=== PATIENT | female | born 1985 | race Hispanic/Latino ===

== ENCOUNTER 2019-04-01 03:23 | Emergency (ER) | payer SELFPAY ==
[2019-04-01] MEDS ORDERED: Morphine 4 MG/ML VIAL ONE (03:43)
[2019-04-01] MEDS ORDERED: Ondansetron PF 4 MG/2 ML Vial ONE (03:43)
[2019-04-01 04:14] LABS: BHCG - Serum Negative (NEGATIVE); Pregs Control Background? CLEAR/WHITE (CLR/WHITE); Pregs Control Bar Appear? YES (CONTROL BAR)
[2019-04-01 04:31] LABS: Band 1 % (5-11); Eosinophils 1 % (0-10); Lymphocytes 36 % (21-51); MDiff Complete? YES; Mean Corpuscular HGB CONC 37.1 g/dL (32.0-36.0); Mean Corpuscular Hemoglobin 32.2 pg (27.0-31.0); Mean Corpuscular Volume 84.3 fL (78.0-98.0); Mean Platelet Volume 7.3 fL (7.4-10.4); Monocytes 5 % (0-10); Neutrophil 56 % (42-75); Platelet Count 227 thou/uL (130-400); Platelet Morphology Comment Appears Adequate; RBC Distribution Width 12.5 % (11.5-14.5); Red Blood Cell (RBC) Count 4.33 mill/uL (4.20-5.40); White Blood Cell (WBC) Count 6.2 thou/uL (4.8-10.8)
[2019-04-01 04:44] LABS: Bilirubin Negative (Negative); Blood, Urine Negative (Negative); Clarity CLEAR (Clear); Glucose, Urine (Dipstick) Negative (Negative); Leukocyte Negative (Negative); Nitrite Negative (Negative); Protein, Urine (Dipstick) Negative (Neg-Trace); Specific Gravity, Urine 1.026 (1.002-1.036)
[2019-04-01] MEDS ORDERED: Ketorolac Tromethamine 30 MG/ML VIAL ONE (05:19)
[2019-04-01 05:23] LABS: Carbon Dioxide 22 mmol/L (22-29); Chloride 97 mmol/L (98-107); Potassium 3.8 mmol/L (3.5-5.1); Sodium 130 mmol/L (136-145)
[2019-04-01 05:36] LABS: Anion Gap 15 mmol/L (10-20); Calc. Creatinine Clearance 0 mL/min (70-130); Estimated GFR-MDRD 79
[2019-04-01 05:37] LABS: Calcium 9.6 mg/dL (7.8-10.44); Glucose 97 mg/dL (70-105)
[2019-04-01 05:38] LABS: Albumin 4.9 g/dL (3.5-5.0); Bilirubin, Total 0.4 mg/dL (0.2-1.2)
[2019-04-01 05:39] LABS: Alkaline Phosphatase 66 U/L (40-150); Globulin 2.8 g/dL (2.4-3.5)
[2019-04-01 05:40] LABS: AST (SGOT) 25 U/L (5-34)
[2019-04-01 05:41] LABS: Lipase 32 U/L (8-78)
[2019-04-01 05:46] LABS: Protein, Total 7.7 g/dL (6.0-8.3)
[2019-04-01 05:52] LABS: ALT (SGPT) 29 U/L (8-55); BUN (Urea Nitrogen) 19 mg/dL (7.0-18.7)
== END 2019-04-01 06:19 | disposition home or self-care (01) ==
LOC: ERS 03:23
DX: R10.32 Left lower quadrant pain (principal); R11.2 Nausea with vomiting, unspecified
CPT/HCPCS: 80053; 81003; 83690; 84703; 85025; 96374; 96375; J1885; J2270; J2405

== ENCOUNTER 2019-06-10 13:23 | Inpatient (IN) | payer SELFPAY ==
[2019-06-10 14:02] LABS: BHCG - Serum Negative (NEGATIVE); Pregs Control Background? CLEAR/WHITE (CLR/WHITE); Pregs Control Bar Appear? YES (CONTROL BAR)
[2019-06-10 14:04] LABS: Bilirubin Negative (Negative); Blood, Urine Negative (Negative); Clarity Clear (Clear); Glucose, Urine (Dipstick) Normal (Negative); Leukocyte Negative Leu/uL (Negative); Nitrite Negative (Negative); Protein, Urine (Dipstick) Negative (Neg-Trace); Urobilinogen Normal mg/dL (Less than 2)
[2019-06-10] MEDS ORDERED: Pantoprazole 40 MG VIAL ONE (14:04)
[2019-06-10] MEDS ORDERED: Ondansetron PF 4 MG/2 ML Vial ONE (14:04)
[2019-06-10] MEDS ORDERED: Morphine 4 MG/ML VIAL ONE ×2 (14:04→16:30)
[2019-06-10 14:27] LABS: Hemoglobin 12.7 g/dL (12.0-16.0); Mean Corpuscular HGB CONC 35.9 g/dL (32.0-36.0); Mean Corpuscular Hemoglobin 29.1 pg (27.0-31.0); Mean Corpuscular Volume 81.1 fL (78.0-98.0); Mean Platelet Volume 7.9 fL (7.4-10.4); Platelet Count 223 thou/uL (130-400); RBC Distribution Width 12.8 % (11.5-14.5); Red Blood Cell (RBC) Count 4.35 mill/uL (4.20-5.40); White Blood Cell (WBC) Count 8.9 thou/uL (4.8-10.8)
[2019-06-10 14:39] LABS: #Eosinphils 0.1 thou/uL (0.0-0.7); #Lymphocytes 3.5 thou/uL (1.20-3.40); #Monocytes 0.5 thou/uL (0.11-0.59); #Neutrophils 4.7 thou/uL (1.40-6.50); %Basophils 0.5 % (0.0-1.0); %Eosinophils 1.4 % (0.0-10.0); %Lymphocytes 39.3 % (21.0-51.0); %Monocytes 5.8 % (0.0-10.0); Band 3 % (5-11); Eosinophils 1 % (0-10); Lymphocytes 30 % (21-51); MDiff Complete? YES; Monocytes 10 % (0-10); Neutrophil 49 % (42-75); Ovalocytes SLIGHT = 2-5 cells (100X) (0-1/hpf); Platelet Morphology Comment Appears Adequate; Polychromasia SLIGHT = 2-3 cells (100X) (0-2/hpf); Reactive Lymphocytes 5 % (0-10); Tear Drops SLIGHT = 2-5 cells (100X) (0-1/hpf)
[2019-06-10] MEDS ORDERED: Ketorolac Tromethamine 30 MG/ML VIAL ONE (14:49)
[2019-06-10 15:02] LABS: Anion Gap 17 mmol/L (10-20); Carbon Dioxide 20 mmol/L (22-29); Chloride 106 mmol/L (98-107); Potassium 4.2 mmol/L (3.5-5.1); Sodium 139 mmol/L (136-145)
[2019-06-10 15:03] LABS: BUN (Urea Nitrogen) 18 mg/dL (7.0-18.7); Calc. Creatinine Clearance 0 mL/min (70-130); Estimated GFR-MDRD 87; Glucose 107 mg/dL (70-105)
[2019-06-10 15:04] LABS: ALT (SGPT) 25 U/L (8-55); AST (SGOT) 31 U/L (5-34); Albumin 4.6 g/dL (3.5-5.0); Alkaline Phosphatase 65 U/L (40-150); Bilirubin, Total 0.5 mg/dL (0.2-1.2); Calcium 9.2 mg/dL (7.8-10.44); Globulin 2.6 g/dL (2.4-3.5); Protein, Total 7.2 g/dL (6.0-8.3)
[2019-06-10 15:06] LABS: CK (CPK) 60 U/L (29-168)
[2019-06-10 15:07] LABS: Lipase 3575 U/L (8-78)
--- NOTE | 2019-06-10 15:14 | CT ---
CT Abdomen Pelvis W Con: 06/10/2019 1:53 PM CLINICAL INFORMATION: Epigastric abdominal pain COMPARISON: None. TECHNIQUE: Multiple contiguous axial images were obtained and a CT of the abdomen and pelvis with IV contrast. C oronal reformats were performed. FINDINGS: Lower Chest: within normal limits. Abdomen: Liver: within normal limits. Bile Ducts: Normal caliber. Gallbladder: No calcified gallstones. Normal caliber wall. Pancreas: Stranding changes seen surrounding the pancreas consistent with acute pancreatitis. There i s no evidence of necrosis of the pancreas or pseudocyst development. Spleen: within normal limits. Adrenals: within normal limits. Kidneys: within normal limits. Pelvis: Reproductive Organs: No pelvic masses. Ureters: within normal limits. Bladder: within normal limits. Peritoneum: No ascites or free air, no fluid collection. Bowel: Normal caliber. Mesentery and Retroperitoneum: No enlarged mesenteric or retroperitoneal lymph nodes. Vessels: Normal. Abdominal Wall: within normal limits. Bones: Within normal limits IMPRESSION: Acute pancreatitis.
[2019-06-10] MEDS ORDERED: Fentanyl 100 MCG/2 ML VIAL ONE ×2 (15:33→15:54)
[2019-06-10] MEDS ORDERED: ISOVUE-370 76%-LOCM 1 ML ONE (16:20)
[2019-06-10] MEDS ORDERED: Morphine 4 MG/ML VIAL SLOW IVP PRN (16:37)
[2019-06-10] MEDS ORDERED: Acetaminophen 650 MG Suppository PR PRN (16:37)
[2019-06-10] MEDS: Sodium Chloride 0.9% 1,000 ML IV SCH (17:24)
[2019-06-10 17:47] LABS: Amphetamine Not Detected (NotDetected); Barbiturates Screen Not Detected (NotDetected); Benzodiazepine Screen Not Detected (NotDetected); Cocaine Metabolite Screen Not Detected (NotDetected); Medtox Control Line Valid? VALID (VALID); Medtox Reader # READER 1; Methadone Not Detected (NotDetected); Methamphetamine Not Detected (NotDetected); Opiate Screen Not Detected (NotDetected); Oxycodone Screen Not Detected (NotDetected); Phencyclidine (PCP) Not Detected (NotDetected); THC/Cannabinoid Screen Detected (NotDetected); Tricyclic Screen Not Detected (NotDetected)
--- NOTE | 2019-06-10 17:54 | HP ---
PRIMARY CARE PROVIDER: None. CHIEF COMPLAINT: Abdominal pain. HISTORY OF PRESENT ILLNESS: Ms. Snyder is a pleasant 34-year-old lady, who was seen at [facility] on June 10, 2019. She moved here from [place] approximately 5 months ago. She reports that 2 years ago while she was in [place], she had abdominal pain. She was hospitalized for a month. She also reports having some procedure to remove fat with the scope. She has been told not to eat lactulose. She was also reportedly told that she cannot eat shrimp. She presented to our emergency room on April 01, 2019, complaining of left lower quadrant abdominal pain. She was discharged home with pain medications at that time. She reports drinking 4 beers two days ago. That day, she also had diarrhea. She also reports having some nausea. She denies any fevers. She ate at a [employer] yesterday and consumed shrimp. Today morning, she started having abdominal pain. She describes that it is in the epigastrium, 10/10, constant, radiating to the back, no known aggravating or relieving factors, accompanied by nausea, but not by vomiting. She denies any fevers. She is unable to describe the character of the pain. She presented to the emergency room because of the above symptoms. REVIEW OF SYSTEMS: All systems were reviewed and found to be negative except for the pertinent positives mentioned above. PAST MEDICAL HISTORY: Probable pancreatitis while she was in [place]. PAST SURGICAL HISTORY: Appendectomy and surgical removal of ovarian cyst. SOCIAL HISTORY: The patient drinks alcohol occasionally. She denies tobacco use. She smokes marijuana. FAMILY HISTORY: No family history of coronary artery disease. ALLERGIES: NO KNOWN DRUG ALLERGIES. CURRENT MEDICATIONS: None. PHYSICAL EXAMINATION: GENERAL: On examination, Ms. Snyder is awake and alert, occasionally in distress because of epigastric pain. VITAL SIGNS: Blood pressure is 136/82, pulse 71, respiratory rate 16, and oxygen saturation 100% on 2 L of oxygen. She is afebrile. EYES: No scleral icterus. No conjunctival pallor. ENT: Moist mucosal membranes. No oropharyngeal erythema or exudates. NECK: Supple, nontender, trachea is midline. RESPIRATORY: Accessory muscles of breathing are not active. Chest wall movements are symmetric bilaterally. Lungs are clear to auscultation without wheeze, rhonchi, or crepitations. CARDIOVASCULAR: S1 and S2 are heard, regular. Peripheral pulses palpable. ABDOMEN: She has epigastric tenderness. No guarding or rigidity. Bowel sounds are heard. Camargo sign is negative. No hepatomegaly. No splenomegaly. NEUROLOGIC: Cranial nerves 2 through 12 intact, deep tendon reflexes 2+. MUSCULOSKELETAL: Power is 5/5 in all 4 extremities. SKIN: No rashes or subcutaneous nodules. LYMPHATIC: No cervical lymphadenopathy. PSYCHIATRIC: Normal mood, normal affect. The patient is oriented to person, place, and time. LABORATORY DATA: Ms. Snyder' labs and investigations were reviewed. A 12-lead electrocardiogram shows normal sinus rhythm, no ST changes to suggest an acute coronary syndrome. CT scan of the abdomen and pelvis showed acute pancreatitis. She has an unremarkable CBC, mildly decreased carbon dioxide of 20, otherwise unremarkable comprehensive metabolic profile, negative serum test, lipase is elevated at 3575, normal CK and normal troponin-I. Urinalysis was negative. ASSESSMENT AND PLAN: Ms. Snyder is a pleasant 34-year-old lady, who was seen at [facility] on June 10, 2019. Her problem list includes: 1. Acute abdominal pain: This is most likely secondary to acute pancreatitis. The etiology is unclear. She will be admitted to the hospital for further management. She will be kept n.p.o. She will receive intravenous fluids and pain medications. We will recheck her lipase. We will also recheck comprehensive metabolic profile. 2. Marijuana use: The patient has been counseled regarding marijuana cessation. Further management during this hospitalization depending on how she does tonight. LEVEL OF RISK: Moderate. LEVEL OF COMPLEXITY: Moderate. Job ID: [id number]
[2019-06-10] MEDS: Ondansetron PF 4 MG/2 ML Vial IVP PRN (18:31)
[2019-06-10] MEDS: Morphine 2 MG/ML SYRINGE SLOW IVP PRN ×2 (18:32→22:33)
[2019-06-10] MEDS: Ketorolac Tromethamine 30 MG/ML VIAL IVP PRN (20:34)
[2019-06-10] MEDS: Famotidine/PF 20 mg/2ml Vial SLOW IVP SCH (20:39)
[2019-06-11] MEDS: Morphine 2 MG/ML SYRINGE SLOW IVP PRN ×3 (02:12→14:31)
[2019-06-11] MEDS: Sodium Chloride 0.9% 1,000 ML IV SCH ×2 (02:13→13:22)
[2019-06-11] MEDS: Ketorolac Tromethamine 30 MG/ML VIAL IVP PRN (04:46)
[2019-06-11 07:12] LABS: #Lymphocytes 1.3 thou/uL (1.20-3.40); #Monocytes 0.5 thou/uL (0.11-0.59); #Neutrophils 13.8 thou/uL (1.40-6.50); %Basophils 0.1 % (0.0-1.0); %Eosinophils 0.2 % (0.0-10.0); %Lymphocytes 8.5 % (21.0-51.0); %Monocytes 3.4 % (0.0-10.0); %Neutrophils 87.8 % (42.0-75.0); Hemoglobin 13.1 g/dL (12.0-16.0); Mean Corpuscular HGB CONC 33.4 g/dL (32.0-36.0); Mean Corpuscular Volume 86.8 fL (78.0-98.0); Mean Platelet Volume 9.3 fL (7.4-10.4); Platelet Count 172 thou/uL (130-400); RBC Distribution Width 13.8 % (11.5-14.5); Red Blood Cell (RBC) Count 4.53 mill/uL (4.20-5.40); White Blood Cell (WBC) Count 14.9 thou/uL (4.8-10.8)
[2019-06-11] MEDS: Famotidine/PF 20 mg/2ml Vial SLOW IVP SCH ×2 (08:49→20:53)
[2019-06-11] MEDS: Ondansetron PF 4 MG/2 ML Vial IVP PRN ×2 (09:44→19:08)
[2019-06-11] MEDS ORDERED: Fentanyl 100 MCG/2 ML VIAL SLOW IVP SCH (11:30)
[2019-06-11] MEDS ORDERED: Calcium Gluc 4.6 MEQ/10 ML (100 MG/ML) SLOW IVP SCH ×2 (11:35→14:00)
--- NOTE | 2019-06-11 12:08 | CT ---
CT BRAIN WITHOUT CONTRAST: HISTORY: Numbness and tingling ion the face and fingers. COMPARISON: There are no previous exams for comparison. FINDINGS: No evidence of infarct, hemorrhage, midline shift, or abnormal extraaxial fluid collections are seen. The ventricular size is normal, and the basilar cisterns are patent. The bony calvarium is intact. The visualized paranasal sinuses and mastoid air cells are well aerated. IMPRESSION: No CT evidence of acute intracranial process. POS: TPC
[2019-06-11 13:16] LABS: Carbon Dioxide 19 mmol/L (22-29); Chloride 107 mmol/L (98-107); Potassium 3.8 mmol/L (3.5-5.1); Sodium 137 mmol/L (136-145)
[2019-06-11 13:17] LABS: Anion Gap 15 mmol/L (10-20); BUN (Urea Nitrogen) 18 mg/dL (7.0-18.7); Calc. Creatinine Clearance 118 mL/min (70-130); Estimated GFR-MDRD Greater than 90
[2019-06-11 13:18] LABS: Glucose 122 mg/dL (70-105)
[2019-06-11 13:19] LABS: Bilirubin, Total 0.6 mg/dL (0.2-1.2); Calcium 4.8 mg/dL (7.8-10.44)
[2019-06-11 13:20] LABS: Albumin 3.2 g/dL (3.5-5.0); Globulin 2.3 g/dL (2.4-3.5); Protein, Total 5.5 g/dL (6.0-8.3)
[2019-06-11 13:21] LABS: ALT (SGPT) 13 U/L (8-55); AST (SGOT) 43 U/L (5-34); Alkaline Phosphatase 46 U/L (40-150)
[2019-06-11] MEDS ORDERED: Dextrose 10% in Water 1,000 ML IV SCH (14:00)
[2019-06-11] MEDS ORDERED: Fentanyl 100 MCG/2 ML VIAL SLOW IVP PRN (14:02)
[2019-06-11] MEDS ORDERED: Magnesium 2 GM/50 ML 2 GM in Premix Bag 1 BAG IVPB SCH (14:45)
[2019-06-11] MEDS ORDERED: Lactated Ringer's 1,000 ML IV SCH (15:45)
[2019-06-11] MEDS: HUMULIN R 100 UNITS in Sodium Chloride 0.9% 100 ML IVPB SCH (15:47)
[2019-06-11 16:20] LABS: Cardiac Risk 34.8 (Less than 4.5); Cholesterol 453 mg/dl (< 200 Desired); HDL Cholesterol 13 mg/dL (>60 Neg Risk)
--- NOTE | 2019-06-11 16:20 | CON ---
DATE OF CONSULTATION: 06/11/2019 SERVICE: Pulmonary Medicine. REASON FOR CONSULTATION: ICU patient. HISTORY OF PRESENT ILLNESS: The patient is a 34-year-old female with past medical history significant for alcohol abuse. Apparently, she is a daily drinker, though she denied it when she came into the hospital. She was in her usual state of health when she started having onset of abdominal discomfort. Multiple attempts have been made at drawing blood samples, but a couple of samples have been discarded because the lipid level was too high. We subsequently brought her down to the ICU department to initiate an insulin drip. She has abdominal discomfort. Otherwise, she is in her usual state of health. She has a remote history of acute pancreatitis. She is Maltese-speaking only. PAST MEDICAL HISTORY: History of pancreatitis. PAST SURGICAL HISTORY: 1. Appendectomy. 2. Ovarian cyst excision. SOCIAL HISTORY: The patient drinks on a daily basis. The extent of that is difficult to understand. She denies any tobacco. Outside of marijuana, she does not do any illicit drugs. FAMILY HISTORY: Noncontributory. ALLERGIES: NO KNOWN DRUG ALLERGIES. MEDICATIONS: List of her inpatient medications was reviewed. Multiple updates were made at this time. REVIEW OF SYSTEMS: General; head, eyes, ears, nose, and throat; cardiovascular, respiratory, GI, , musculoskeletal, neurologic, and skin are negative, except as mentioned in the HPI. PHYSICAL EXAMINATION: VITAL SIGNS: Afebrile. Pulse 88, blood pressure 100/68, respirations 18, and saturation 97% on room air. GENERAL: The patient is awake and alert, in no apparent distress. LUNGS: Decent air entry. No prolonged expiratory phase or wheezing is present. HEART: Normal rate. Regular. ABDOMEN: Distended. Tender to palpation in the epigastric region. There is no rebound. Bowel sounds are hypoactive. She has some rebound. : No Craig. NEUROLOGIC: Grossly nonfocal. LABORATORY DATA: WBC 14.9 and up trending, hemoglobin 13.1, and roughly stable , and platelets 172,000. Sodium 137, potassium 3.8, bicarb 19, glucose 122, calcium 4.8, AST 43, ALT 13. Albumin 3.2, globulin 2.3. Troponin is negative x1. CK is unremarkable. Lipase was originally 3500. Urine test was unremarkable. Urinalysis is negative. Urine drug screen is positive for cannabinoids. IMAGING STUDIES: 1. CT of the abdomen and pelvis demonstrates findings consistent with acute pancreatitis. There are stranding and changes seen around the pancreas. No evidence of necrosis of the pancreas or pseudocyst development. The gallbladder was normal caliber and no calcified gallstones were identified. The bile duct normal specifically had normal caliber. 2. CT of the brain demonstrates no acute intracranial abnormality. ASSESSMENT: 1. Acute pancreatitis. 2. Dyslipidemia. DISCUSSION AND PLAN: My suspicion is that we are dealing with a severe acute pancreatitis, that is early in its manifestation. The fact that the patient has had 2 blood samples discarded because of hemolysis and lipidemia, are of concern. I am going to treat this like she has hypertriglyceridemia while we attempt to get the results back. She has already had a negative CT scan for obstructive lesions. She is not taking any medications. We will increase her fluids to lactated Ringer's at 150 an hour and add D10 water to be titrated. I am going to initiate this insulin drip. Pain medication will be instituted to help with the discomfort in her belly. This will be Dilaudid. I will get rid of the fentanyl and the morphine. Pulmonary/ Critical Care will continue to follow while the patient remains in the ICU. 70 minutes have been devoted to this patient in various activities. I personally reviewed all imaging studies and laboratory data noted within this document. For fifty percent of this time, I was interacting with the patient at the bedside or coordinating care with the care team. For the remainder of the time I was immediately available to the patient in the hospital unit. Job ID: [id number] MTDD
[2019-06-11 17:04] LABS: Triglycerides 3335 mg/dL (Less than 150)
[2019-06-11] MEDS: Calcium Gluconate 4.6 MEQ in Sodium Chloride 0.9% 100 ML IVPB SCH ×2 (17:08→20:53)
[2019-06-11] MEDS: HYDROmorphone 0.5 MG/0.5 ML SYRINGE SLOW IVP PRN ×4 (17:12→23:27)
--- NOTE | 2019-06-11 18:08 | PDOC.HOSPP ---
- Subjective Encounter Date: 06/11/19 Encounter Time: 18:07 Subjective: Pt seen for followup re: severe hypercalcemia. Seen earlier as well, pt was having carpal spasms. Reports feeling slightly better now. Nausea+ - Objective Vital Signs & Weight: Vital Signs (12 hours) Temp Pulse Resp BP Pulse Ox 06/11/19 16:01 98 06/11/19 16:00 98.4 F 06/11/19 14:40 98.9 F 88 20 116/72 97 06/11/19 11:35 99.0 F 88 18 100/68 97 06/11/19 08:00 98.7 F 85 18 106/72 97 Weight Weight 130 lb 1.164 oz Most Recent Monitor Data Heart Rate from ECG 99 NIBP 98/62 NIBP BP-Mean 74 Respiration from ECG 28 SpO2 97 I&O: 06/10/19 06/11/19 06/12/19 06:59 06:59 06:59 Intake Total 100 Output Total 150 Balance -50 Result Diagrams: 06/11/19 06:19 06/11/19 12:00 Additional Labs: Accuchecks 06/11/19 06/11/19 16:51 16:02 POC Glucose 118 H 154 H labs and MARS reviewed by me EKG Reviewed by me: Yes (Tele: NSR) ROS - Review of Systems ENT: reports: throat pain Respiratory: denies: cough, shortness of breath, SOB with excertion, pleuritic pain, wheezing, other Cardiovascular: denies: chest pain, palpitations, orthopnea, paroxysmal noc. dyspnea, edema, light headedness Gastrointestinal: reports: nausea, vomitting, abdominal pain. denies: diarrhea , constipation, melena, hematochezia Musculoskeletal: reports: hand pain - Medication Medications: Active Medications Generic Name Dose Route Start Last Admin Trade Name Freq PRN Reason Stop Dose Admin Famotidine 20 mg 06/10/19 21:00 06/11/19 08:49 Pepcid SLOW IVP 20 mg Q12HR AUDIE Administration Hydromorphone HCl 0.25 mg 06/11/19 15:55 06/11/19 17:12 Dilaudid SLOW IVP 0.25 mg Q2H PRN Administration Pain Insulin Human Regular 100 101 mls @ 0 mls/hr 06/11/19 14:00 06/11/19 15:47 units/ Sodium Chloride IVPB 101 mls INF AUDIE Administration Protocol Titrate Lactated Ringer's 1,000 mls @ 150 mls/hr 06/11/19 15:45 06/11/19 16:57 Lactated Ringer's IV 1,000 mls .Q6H40M AUDIE Administration Calcium Gluconate 4.6 meq/ 110 mls @ 200 mls/hr 06/11/19 16:00 06/11/19 17:08 Sodium Chloride IVPB 06/11/19 20:32 110 mls Q4H AUDIE Administration Ondansetron HCl 4 mg 06/10/19 16:37 06/11/19 09:44 Zofran IVP 4 mg Q6H PRN Administration Nausea/Vomiting - Exam NAD Eye: anicteric sclera ENT: normocephalic atraumatic Neck: supple Heart: RRR, no gallops Respiratory: CTAB, no rales Gastrointestinal: tender to palpation, distended, diminished bowl sounds Extremities: no cyanosis Skin: normal turgor Neurological - other findings: carpal spasms Psychiatric: normal affect, normal behavior Hosp A/P (1) Hypocalcemia Code(s): E83.51 - HYPOCALCEMIA Status: Acute (2) Acute pancreatitis Code(s): K85.90 - ACUTE PANCREATITIS WITHOUT NECROSIS OR INFECTION, UNSP Status: Acute (3) Marijuana use Code(s): F12.90 - CANNABIS USE, UNSPECIFIED, UNCOMPLICATED Status: Chronic (4) Hypertriglyceridemia Code(s): E78.1 - PURE HYPERGLYCERIDEMIA Status: Chronic - Plan plan discussed w/ family Pt has been started on IV calcium replacement. magnesium replaced as well. On insulin drip for hypertriglyceridemia (along with dextrose IV fluids). Bowel rest. Follow lipase.
[2019-06-11 18:21] LABS: Anion Gap 20 mmol/L (10-20); BUN (Urea Nitrogen) 13 mg/dL (7.0-18.7); Calc. Creatinine Clearance 126 mL/min (70-130); Calcium 6.1 mg/dL (7.8-10.44); Carbon Dioxide 10 mmol/L (22-29); Chloride 101 mmol/L (98-107); Estimated GFR-MDRD Greater than 90; Glucose 104 mg/dL (70-105); Sodium 128 mmol/L (136-145)
[2019-06-11] MEDS ORDERED: Calcium Gluconate 4.6 MEQ in Sodium Chloride 0.9% 100 ML IVPB SCH (19:15)
[2019-06-11] MEDS ORDERED: Furosemide 20 MG/2 ML VIAL SLOW IVP SCH (19:15)
[2019-06-11] MEDS: Dextrose 5%-Lactated Ringers 1,000 ML IV SCH (19:31)
[2019-06-11] MEDS: Potassium Chloride 40 MEQ in Sodium Chloride 0.9% 500 ML IVPB SCH (19:32)
[2019-06-11] MEDS: Heparin 5,000 UNITS/ML VIAL SC SCH (20:53)
[2019-06-12] MEDS: Potassium Chloride 40 MEQ in Sodium Chloride 0.9% 500 ML IVPB SCH
[2019-06-12] MEDS: Dextrose 5%-Lactated Ringers 1,000 ML IV SCH ×4 (01:36→19:07)
[2019-06-12] MEDS: Dextrose 10% in Water 1,000 ML IV SCH ×4 (01:37→23:18)
[2019-06-12] MEDS: HYDROmorphone 0.5 MG/0.5 ML SYRINGE SLOW IVP PRN ×10 (02:02→22:05)
--- NOTE | 2019-06-12 03:32 | CON ---
DATE OF CONSULTATION: 06/11/2019 CHIEF COMPLAINT: Abdominal pain. HISTORY OF PRESENT ILLNESS: Ms. Snyder is a 34-year-old woman had onset of severe epigastric to lower abdominal pain in the morning of 06/10/2019. Pain was severe, radiated to her back. She had nausea without vomiting. No diarrhea, constipation,or blood in the stool. She had been hospitalized a couple of years ago with pancreatitis. She is in the hospital for a month. She does have a history of alcohol use, however, is found to have significantly elevated triglycerides. PAST MEDICAL HISTORY: Pancreatitis. PAST SURGICAL HISTORY: Appendectomy and ovarian cyst surgery. FAMILY HISTORY: Negative for GI malignancy. SOCIAL HISTORY: There is conflicting information regarding the amount of alcohol use. Does smoke marijuana, but denies tobacco. ALLERGIES: NO KNOWN DRUG ALLERGIES. MEDICATIONS: As an outpatient, none. Current inpatient medications are famotidine, Dilaudid, insulin drip. REVIEW OF SYSTEMS: Negative x10 systems reviewed except as stated in history of present illness. PHYSICAL EXAMINATION: VITAL SIGNS: Temperature 99.4, blood pressure 108/69, pulse 117. GENERAL: She is in obvious discomfort. She is awake and alert. HEENT: Eyes have no scleral icterus. Oropharynx is clear without lesions. NECK: No cervical or supraclavicular lymphadenopathy. LUNGS: Clear to auscultation bilaterally. HEART: Tachycardic, S1 and S2. ABDOMEN: Tender in the epigastric region to light palpation. Bowel sounds were hypoactive. EXTREMITIES: No lower extremity edema. LABORATORY DATA: White blood cell count 14.9, hemoglobin 13.1, platelets 172. Creatinine 0.58. Calcium 6.1, however, this is from 4.8 at noon today. Bilirubin 0.6, AST 43, ALT 13, alkaline phosphatase 46, albumin 3.2. Triglycerides 3335, lipase 3575. IMPRESSION: Acute severe pancreatitis secondary to hypertriglyceridemia. The hypocalcemia is a worrisome finding. Her hemoglobin increased slightly from last night to this morning; however, her fluids have since been increased. CT scan on 06/10/2019, showed no signs of necrosis on the contrasted study. RECOMMENDATIONS: 1. Plasmapheresis is not available at this facility, though she is being treated with insulin drip. 2. We will need to follow the trend of her triglycerides. Ultimately, we will need to start oral long-term therapy. 3. Follow trend of her calcium. This is being replaced IV. 4. Pain control, currently on Dilaudid. She might end up requiring a pain pump. 5. Continue to monitor for secondary organ failure. 6. Lactated Ringer's IV currently at 175 mL/h. Job ID: [id number]
[2019-06-12 05:43] LABS: ALT (SGPT) 12 U/L (8-55); AST (SGOT) 28 U/L (5-34); Albumin 2.7 g/dL (3.5-5.0); Alkaline Phosphatase 44 U/L (40-150); Anion Gap 13 mmol/L (10-20); BUN (Urea Nitrogen) 11 mg/dL (7.0-18.7); Calc. Creatinine Clearance 138 mL/min (70-130); Carbon Dioxide 17 mmol/L (22-29); Chloride 104 mmol/L (98-107); Estimated GFR-MDRD Greater than 90; Glucose 122 mg/dL (70-105); Lipase 387 U/L (8-78); Potassium 3.7 mmol/L (3.5-5.1); Protein, Total 5.7 g/dL (6.0-8.3); Sodium 130 mmol/L (136-145)
[2019-06-12 05:44] LABS: Band 22 % (5-11); Hemoglobin 13.2 g/dL (12.0-16.0); Lymphocytes 6 % (21-51); MDiff Complete? YES; Mean Corpuscular HGB CONC 35.9 g/dL (32.0-36.0); Mean Corpuscular Volume 86.4 fL (78.0-98.0); Mean Platelet Volume 7.6 fL (7.4-10.4); Monocytes 2 % (0-10); Neutrophil 70 % (42-75); Platelet Count 180 thou/uL (130-400); Platelet Morphology Comment Appears Adequate; RBC Morphology Normal; Red Blood Cell (RBC) Count 4.26 mill/uL (4.20-5.40); White Blood Cell (WBC) Count 10.9 thou/uL (4.8-10.8)
[2019-06-12 05:48] LABS: Calcium 5.9 mg/dL (7.8-10.44); Magnesium 1.9 mg/dL (1.6-2.6)
[2019-06-12] MEDS ORDERED: Calcium Gluconate 4.6 MEQ in Sodium Chloride 0.9% 100 ML IVPB SCH (06:15)
[2019-06-12] MEDS: HUMULIN R 100 UNITS in Sodium Chloride 0.9% 100 ML IVPB SCH (06:38)
[2019-06-12] MEDS: Famotidine/PF 20 mg/2ml Vial SLOW IVP SCH ×2 (08:01→21:03)
[2019-06-12] MEDS: Heparin 5,000 UNITS/ML VIAL SC SCH ×3 (08:02→21:03)
[2019-06-12] MEDS ORDERED: Magnesium 2 GM/50 ML 2 GM in Premix Bag 1 BAG IVPB SCH (10:30)
--- NOTE | 2019-06-12 10:34 | PRG ---
DATE OF SERVICE: 06/12/2019 SERVICE: Pulmonary Medicine. INTERVAL HISTORY: The patient is doing okay from Respiratory standpoint. She remains tachypneic. She has exquisite abdominal discomfort. Otherwise, there really has not been a significant interval change in her condition. She denies any fevers or chills. There were no significant overnight events otherwise. PHYSICAL EXAMINATION: VITAL SIGNS: Afebrile, pulse 121, blood pressure 110/74, respirations 39, saturation 95% on room air. GENERAL: The patient is awake and alert, in no apparent distress. LUNGS: Very good air entry. No crackles or wheezing appreciated. HEART: Normal rate and regular. ABDOMEN: Distended. Exquisitely tender to palpation. There is positive rebound. Bowel sounds are hypoactive. : No Craig NEUROLOGIC: Grossly nonfocal. LABORATORY DATA: WBC 10.9, hemoglobin 13.2, platelets 180,000. Band count is 22% on top of 70% neutrophils. Magnesium 1.9. Blood sugars are ranging from 119 to 120. Triglycerides have improved to 1100. Calcium 5.9, sodium 130. Bicarb has improved gently to 17. Liver function studies are otherwise unremarkable. Lipase 387, has significantly improved. Calcium continues to trend downward to 5.9. ASSESSMENT: 1. Acute pancreatitis. 2. Hypertriglyceridemia. 3. Hypocalcemia, owing to soponification reaction. DISCUSSION AND PLAN: I will replace the magnesium and calcium today. I will continue to follow electrolytes through time. It appears that the acute inflammatory response is slowly improving. If by tomorrow, she cannot tolerate food, my plan would be to initiate trickle tube feeds. Early feeding is imperative in people who have severe pancreatitis. She needs to remain in the ICU on her insulin drip for the next 24 hours. Job ID: [id number] [facility]
[2019-06-12] MEDS: Calcium Gluconate 4.6 MEQ in Sodium Chloride 0.9% 100 ML IVPB SCH ×2 (11:03→14:58)
[2019-06-12] MEDS ORDERED: Potassium Chloride 40 MEQ in Sodium Chloride 0.9% 250 ML 250 ML IVPB SCH (12:00)
[2019-06-12] MEDS ORDERED: Acetaminophen 1,000 MG in Premix Bag 1 BAG IVPB SCH (12:15)
[2019-06-12] MEDS: Acetaminophen 325 MG TAB PO PRN (17:30)
--- NOTE | 2019-06-12 17:43 | PDOC.HOSPP ---
- Subjective Encounter Date: 06/12/19 Encounter Time: 09:00 Subjective: Pt seen for followup re: hypocalcemia. Feels better. - Objective Vital Signs & Weight: Vital Signs (12 hours) Temp Pulse Ox 06/12/19 16:00 98.0 F 06/12/19 11:56 98.1 F 06/12/19 08:00 94 L 06/12/19 07:00 98.6 F Weight Weight 152 lb 8.958 oz Most Recent Monitor Data Heart Rate from ECG 118 NIBP 129/75 NIBP BP-Mean 93 Respiration from ECG 30 SpO2 98 I&O: 06/11/19 06/12/19 06/13/19 06:59 06:59 06:59 Intake Total 5224 3343 Output Total 1350 1357 Balance 3874 1986 Result Diagrams: 06/12/19 04:59 06/12/19 04:59 Additional Labs: Accuchecks 06/12/19 06/12/19 06/12/19 14:12 10:09 09:00 POC Glucose 108 110 122 H 06/12/19 06/12/19 06/12/19 08:09 07:04 06:05 POC Glucose 120 H 119 H 116 H 06/12/19 06/12/19 06/12/19 04:59 04:08 03:04 POC Glucose 119 H 124 H 118 H 06/12/19 06/12/19 06/11/19 02:08 00:54 23:53 POC Glucose 125 H 117 H 115 H 06/11/19 06/11/19 06/11/19 22:54 21:53 20:50 POC Glucose 106 114 H 128 H 06/11/19 06/11/19 06/11/19 19:49 18:39 17:48 POC Glucose 130 H 98 116 H 06/11/19 15:37 POC Glucose 182 H Labs and MARs reviewed by me EKG Reviewed by me: Yes (Tele: sinus tachycardia) ROS - Review of Systems Cardiovascular: denies: chest pain, palpitations, orthopnea, paroxysmal noc. dyspnea, edema, light headedness Gastrointestinal: reports: nausea, abdominal pain. denies: vomitting, diarrhea , constipation, melena, hematochezia - Medication Medications: Active Medications Generic Name Dose Route Start Last Admin Trade Name Freq PRN Reason Stop Dose Admin Famotidine 20 mg 06/10/19 21:00 06/12/19 08:01 Pepcid SLOW IVP 20 mg Q12HR AUDIE Administration Heparin Sodium (Porcine) 5,000 units 06/11/19 21:00 06/12/19 14:27 Heparin SC 5,000 units TID AUDIE Administration Hydromorphone HCl 0.25 mg 06/11/19 15:55 06/12/19 14:27 Dilaudid SLOW IVP 0.25 mg Q2H PRN Administration Pain Insulin Human Regular 100 101 mls @ 0 mls/hr 06/11/19 14:00 06/12/19 06:38 units/ Sodium Chloride IVPB 101 mls INF AUDIE Administration Protocol Titrate Dextrose/Water 1,000 mls @ 40 mls/hr 06/11/19 15:56 06/12/19 16:45 Dextrose 10% In Water IV Not Given .Q24H AUDIE As Directed Dextrose/Lactated Ringer's 1,000 mls @ 175 mls/hr 06/11/19 19:15 06/12/19 13: 01 D5 Lr IV 1,000 mls .Q5H43M AUDIE Administration Ondansetron HCl 4 mg 06/10/19 16:37 06/11/19 19:08 Zofran IVP 4 mg Q6H PRN Administration Nausea/Vomiting - Exam NAD Eye: anicteric sclera ENT: normocephalic atraumatic, moist mucosa Neck: supple Heart: no rubs Heart - other findings: S1, S2, tachy, reg Respiratory: CTAB Gastrointestinal: soft, no guarding, no rigidity Gastrointestinal - other findings: diffuse tenderness Skin: no rashes Musculoskeletal: normal strength Psychiatric: normal affect, normal behavior Hosp A/P (1) Hypocalcemia Code(s): E83.51 - HYPOCALCEMIA Status: Acute (2) Acute pancreatitis Code(s): K85.90 - ACUTE PANCREATITIS WITHOUT NECROSIS OR INFECTION, UNSP Status: Acute (3) Marijuana use Code(s): F12.90 - CANNABIS USE, UNSPECIFIED, UNCOMPLICATED Status: Chronic (4) Hypertriglyceridemia Code(s): E78.1 - PURE HYPERGLYCERIDEMIA Status: Chronic - Plan Pt receiving IV calcium gluconate. Triglyceride levels improved. On insulin drip for hypertriglyceridemia. Bowel rest. Lipase improved.
--- NOTE | 2019-06-12 19:33 | PRG ---
DATE OF SERVICE: 06/12/2019 SUBJECTIVE: Ms. Snyder continues to have abdominal pain. She is receiving Dilaudid scheduled dosing. She is putting out good urine output. PHYSICAL EXAMINATION: VITAL SIGNS: Temperature 98.0, pulse 119, blood pressure 105/67. GENERAL: She is in obvious discomfort. She tells me her name, but is not Danish-speaking. LUNGS: Clear to auscultation bilaterally. HEART: Tachycardic S1 and S2. ABDOMEN: Very tender diffusely. Bowel sounds are hypoactive. EXTREMITIES: No lower extremity edema. LABORATORY DATA: Her white blood cell count has improved from 14.9 to 10.9 and her hemoglobin is 13.2. Calcium 5.9, bilirubin 1.0, AST 28, ALT 12, alkaline phosphatase 44, creatinine 0.62, lipase 387, triglycerides 1158. IMPRESSION: 1. Severe acute pancreatitis secondary to hypertriglyceridemia. Primary treatment is fluid resuscitation and improvement in the triglycerides. Plasmapheresis is not available. She is being treated with insulin drip and her triglycerides have improved from 3000 to 1000. 2. Hypocalcemia is worrisome finding and trend in her. She is receiving replacement IV. RECOMMENDATIONS: 1. Insulin drip. 2. Follow the trend of her calcium and IV replacement. 3. Pain control. 4. IV fluids. Job ID: [id number]
[2019-06-12 20:44] LABS: Anion Gap 8 mmol/L (10-20); BUN (Urea Nitrogen) 6 mg/dL (7.0-18.7); Calc. Creatinine Clearance 162 mL/min (70-130); Calcium 6.7 mg/dL (7.8-10.44); Carbon Dioxide 23 mmol/L (22-29); Chloride 103 mmol/L (98-107); Estimated GFR-MDRD Greater than 90; Glucose 125 mg/dL (70-105); Potassium 3.5 mmol/L (3.5-5.1); Sodium 130 mmol/L (136-145)
[2019-06-13] MEDS: HYDROmorphone 0.5 MG/0.5 ML SYRINGE SLOW IVP PRN ×12 (00:08→22:09)
[2019-06-13] MEDS: Acetaminophen 325 MG TAB PO PRN (00:21)
[2019-06-13] MEDS: Dextrose 5%-Lactated Ringers 1,000 ML IV SCH ×4 (02:32→20:18)
[2019-06-13 05:26] LABS: #Eosinphils 0.1 thou/uL (0.0-0.7); #Monocytes 0.2 thou/uL (0.11-0.59); #Neutrophils 5.6 thou/uL (1.40-6.50); %Basophils 0.4 % (0.0-1.0); %Eosinophils 1.5 % (0.0-10.0); %Lymphocytes 14.5 % (21.0-51.0); %Monocytes 3.2 % (0.0-10.0); %Neutrophils 80.4 % (42.0-75.0); Hemoglobin 11.1 g/dL (12.0-16.0); Mean Corpuscular HGB CONC 34.3 g/dL (32.0-36.0); Mean Corpuscular Hemoglobin 30.6 pg (27.0-31.0); Mean Corpuscular Volume 89.2 fL (78.0-98.0); Platelet Count 178 thou/uL (130-400); RBC Distribution Width 12.9 % (11.5-14.5); Red Blood Cell (RBC) Count 3.62 mill/uL (4.20-5.40)
[2019-06-13 05:45] LABS: Phosphorus 1.4 mg/dL (2.3-4.7)
[2019-06-13 05:47] LABS: ALT (SGPT) 8 U/L (8-55); AST (SGOT) 30 U/L (5-34); Albumin 2.7 g/dL (3.5-5.0); Alkaline Phosphatase 54 U/L (40-150); Anion Gap 4 mmol/L (10-20); BUN (Urea Nitrogen) 4 mg/dL (7.0-18.7); Calc. Creatinine Clearance 145 mL/min (70-130); Calcium 7.1 mg/dL (7.8-10.44); Carbon Dioxide 27 mmol/L (22-29); Chloride 101 mmol/L (98-107); Estimated GFR-MDRD Greater than 90; Globulin 2.8 g/dL (2.4-3.5); Glucose 119 mg/dL (70-105); Lipase 156 U/L (8-78); Magnesium 2.5 mg/dL (1.6-2.6); Potassium 3.5 mmol/L (3.5-5.1); Protein, Total 5.5 g/dL (6.0-8.3); Sodium 128 mmol/L (136-145)
[2019-06-13] MEDS ORDERED: Potassium Phosphate 12 MMOL in Sodium Chloride 0.9% 100 ML IVPB SCH (06:30)
[2019-06-13] MEDS: Heparin 5,000 UNITS/ML VIAL SC SCH ×3 (08:34→20:19)
[2019-06-13] MEDS: Famotidine/PF 20 mg/2ml Vial SLOW IVP SCH ×2 (08:34→20:18)
[2019-06-13] MEDS: HUMULIN R 100 UNITS in Sodium Chloride 0.9% 100 ML IVPB SCH (08:36)
[2019-06-13] MEDS ORDERED: Dextrose 5%-Lactated Ringers 1,000 ML IV SCH (08:39)
[2019-06-13] MEDS ORDERED: Potassium Chloride 40 MEQ in Sodium Chloride 0.9% 250 ML 250 ML IVPB SCH (08:45)
[2019-06-13] MEDS: Dextrose 10% in Water 1,000 ML IV SCH (15:54)
[2019-06-13] MEDS ORDERED: Calcium Gluconate 4.6 MEQ in Sodium Chloride 0.9% 100 ML IVPB SCH (16:03)
--- NOTE | 2019-06-13 16:12 | PDOC.HOSPP ---
- Subjective Encounter Date: 06/13/19 Encounter Time: 10:00 Subjective: Pt seen for followup re: acute pancreatitis. Pt reports nausea and epigastric pain, - Objective Vital Signs & Weight: Vital Signs (12 hours) Temp 06/13/19 07:00 99.4 F Weight Weight 156 lb 8.451 oz Most Recent Monitor Data Heart Rate from ECG 111 NIBP 118/73 NIBP BP-Mean 88 Respiration from ECG 37 SpO2 97 I&O: 06/12/19 06/13/19 06/14/19 06:59 06:59 06:59 Intake Total 5224 6405.3 Output Total 1350 3512 800 Balance 3874 2893.3 -800 Result Diagrams: 06/13/19 04:50 06/13/19 04:51 Additional Labs: Accuchecks 06/13/19 06/13/19 06/13/19 15:32 13:06 11:08 POC Glucose 121 H 143 H 121 H 06/13/19 06/13/19 06/13/19 09:16 08:08 07:31 POC Glucose 99 113 H 107 06/13/19 06/13/19 06/13/19 06:16 04:23 02:58 POC Glucose 110 117 H 130 H 06/13/19 06/12/19 06/12/19 00:14 23:24 22:13 POC Glucose 121 H 106 113 H 06/12/19 06/12/19 06/12/19 21:14 20:23 19:17 POC Glucose 115 H 122 H 117 H 06/12/19 06/12/19 06/12/19 18:34 18:02 17:21 POC Glucose 99 74 100 06/12/19 06/12/19 06/12/19 16:14 15:13 13:00 POC Glucose 97 102 107 06/12/19 06/12/19 12:03 11:05 POC Glucose 105 124 H labs and MARs reviewed by me EKG Reviewed by me: Yes (Tele; sinus tachycardia) ROS - Review of Systems Cardiovascular: denies: chest pain, palpitations, orthopnea, paroxysmal noc. dyspnea, edema, light headedness Gastrointestinal: reports: nausea, abdominal pain. denies: vomitting, diarrhea , constipation, melena, hematochezia - Medication Medications: Active Medications Generic Name Dose Route Start Last Admin Trade Name Freq PRN Reason Stop Dose Admin Acetaminophen 650 mg 06/10/19 16:37 06/13/19 00:21 Tylenol PO 650 mg Q4H PRN Administration Headache/Fever/Mild Pain (1-3) Famotidine 20 mg 06/10/19 21:00 06/13/19 08:34 Pepcid SLOW IVP 20 mg Q12HR AUDIE Administration Heparin Sodium (Porcine) 5,000 units 06/11/19 21:00 06/13/19 15:24 Heparin SC 5,000 units TID AUDIE Administration Hydromorphone HCl 0.5 mg 06/12/19 12:08 06/13/19 15:54 Dilaudid SLOW IVP 0.5 mg Q2H PRN Administration Severe Pain (7-10) Insulin Human Regular 100 101 mls @ 0 mls/hr 06/11/19 14:00 06/13/19 08:36 units/ Sodium Chloride IVPB 101 mls INF AUDIE Administration Protocol Titrate Dextrose/Water 1,000 mls @ 40 mls/hr 06/11/19 15:56 06/13/19 15:54 Dextrose 10% In Water IV 1,000 mls .Q24H AUDIE Administration As Directed Ondansetron HCl 4 mg 06/10/19 16:37 06/11/19 19:08 Zofran IVP 4 mg Q6H PRN Administration Nausea/Vomiting Sodium Chloride 10 ml 06/13/19 09:00 06/13/19 09:02 Flush - Normal Saline IVF Not Given Q12HR AUDIE - Exam NAD Eye: anicteric sclera ENT: moist mucosa Neck: supple Heart - other findings: S1, S2, reg, tachy Respiratory: CTAB Gastrointestinal: tender to palpation Extremities: no cyanosis, no clubbing Neurological: no weakness Psychiatric: normal affect, normal behavior Hosp A/P (1) Acute pancreatitis Code(s): K85.90 - ACUTE PANCREATITIS WITHOUT NECROSIS OR INFECTION, UNSP Status: Acute (2) Marijuana use Code(s): F12.90 - CANNABIS USE, UNSPECIFIED, UNCOMPLICATED Status: Chronic (3) Hypertriglyceridemia Code(s): E78.1 - PURE HYPERGLYCERIDEMIA Status: Chronic (4) Hypocalcemia Code(s): E83.51 - HYPOCALCEMIA Status: Resolved - Plan On insulin drip for hypertriglyceridemia, triglycerides have improved. Lipase improved to 156.
--- NOTE | 2019-06-13 16:20 | PRG ---
DATE OF SERVICE: 06/13/2019 SERVICE: Pulmonary Medicine. INTERVAL HISTORY: The patient is doing really well from respiratory standpoint. Her respirations have dropped from the mid 40s to the low 30s. She looks less toxic today. Her abdominal discomfort is still present, but much improved. She started eating a couple of bites of Jell-O. She certainly does not have a robust appetite at this moment. PHYSICAL EXAMINATION: VITAL SIGNS: Afebrile currently. She had a temperature maximum of 101.0 overnight. Pulse 111, blood pressure 118/73, respirations 26, saturation 97%, currently on room air. GENERAL: The patient is awake and alert, in no apparent distress. LUNGS: Decent air entry. No prolonged expiratory phase or wheezing appreciated. HEART: Tachycardic. Regular. ABDOMEN: Distended. Bowel sounds are present. She does have tenderness to palpation throughout with some rebound. : Craig catheter in place. NEUROLOGIC: Grossly nonfocal. LABORATORY DATA: WBC is 7.0, hemoglobin 11.1, platelets 178,000. Blood sugar ranges from 99 to 143. Urinalysis is unremarkable. Liver function studies remain unremarkable. Lipase and triglycerides continue to trend downward. Magnesium 2.5, phosphorus 1.4. Potassium 3.5, sodium 128. ASSESSMENT: 1. Acute pancreatitis. 2. Hypertriglyceridemia. 3. Hypocalcemia. DISCUSSION AND PLAN: The patient's acidosis and metabolic derangement seem to be improving. Her inflammatory profile seems to be improving as well. As such, I will decrease her IV fluid rate a little bit, and I will encourage p.o. If she is not tolerating p.o. by today, I will need to initiate trickle feeds via an enteric catheter. I would prefer something place that could then go on to be suctioned if necessary. I will give her one more dose of calcium gluconate. Pulmonary/Critical Care will continue to follow very closely. She still needs remain in the ICU. Laboratories will be repeated tomorrow morning again. Job ID: [id number]
--- NOTE | 2019-06-13 16:43 | PRG ---
DATE OF SERVICE: 06/13/2019 SUBJECTIVE: Ms. Snyder has continued to have epigastric abdominal pain. She is receiving Dilaudid every couple of hours. She did have a soft bowel movement today. OBJECTIVE: VITAL SIGNS: Temperature 99.4, she did have a fever to 101.0 at midnight last night. Blood pressure 137/86, pulse 121. GENERAL: She appears uncomfortable, but in not acute distress. LUNGS: Clear to auscultation bilaterally. HEART: Tachycardic. S1, S2. ABDOMEN: Tender throughout to light palpation. EXTREMITIES: No lower extremity edema. LABORATORY DATA: White blood cell count 7.0, hemoglobin 11.1, platelets 12.9. Creatinine 0.59, albumin 2.7, lipase 156, triglycerides are down to 482, calcium 7.1. IMPRESSION: 1. Severe acute recurrent pancreatitis secondary to hypertriglyceridemia. 2. Hypocalcemia. RECOMMENDATIONS: 1. She is tolerating some clear liquids today. Hopefully, she will continue to do better tomorrow, we could advance her diet further. 2. She is receiving calcium supplementation. 3. Her triglycerides are now below 500. She could likely start gemfibrozil soon when she is tolerating adequate oral intake and then can transition off the insulin drip from a hypertriglyceridemia standpoint. Job ID: [id number]
[2019-06-14] MEDS: HYDROmorphone 0.5 MG/0.5 ML SYRINGE SLOW IVP PRN ×13 (00:12→23:58)
[2019-06-14 05:50] LABS: Hemoglobin 10.1 g/dL (12.0-16.0)
[2019-06-14 06:12] LABS: Anion Gap 9 mmol/L (10-20); BUN (Urea Nitrogen) Less than 4 mg/dL (7.0-18.7); Calc. Creatinine Clearance 143 mL/min (70-130); Calcium 7.8 mg/dL (7.8-10.44); Carbon Dioxide 25 mmol/L (22-29); Chloride 100 mmol/L (98-107); Estimated GFR-MDRD Greater than 90; Glucose 151 mg/dL (70-105); Phosphorus 1.7 mg/dL (2.3-4.7); Potassium 3.7 mmol/L (3.5-5.1); Sodium 130 mmol/L (136-145)
[2019-06-14] MEDS: Heparin 5,000 UNITS/ML VIAL SC SCH ×2 (08:06→14:04)
[2019-06-14] MEDS: Famotidine/PF 20 mg/2ml Vial SLOW IVP SCH ×2 (08:06→20:08)
[2019-06-14] MEDS ORDERED: Potassium Phosphate 30 MMOL in Sodium Chloride 0.9% 500 ML IVPB SCH (08:45)
[2019-06-14] MEDS ORDERED: Sodium Phosphate 30 MMOL in Sodium Chloride 0.9% 250 ML 250 ML IVPB SCH (09:00)
[2019-06-14] MEDS: Acetaminophen 325 MG TAB PO PRN ×2 (09:38→15:48)
[2019-06-14] MEDS: Dextrose 5%-Lactated Ringers 1,000 ML IV SCH ×2 (09:39→23:57)
[2019-06-14] MEDS ORDERED: Polyethylene Glycol 3350 17 GM Packet PO SCH (12:00)
[2019-06-14] MEDS: Ondansetron PF 4 MG/2 ML Vial IVP PRN (12:04)
--- NOTE | 2019-06-14 13:56 | PDOC.HOSPP ---
- Subjective Encounter Date: 06/14/19 Encounter Time: 08:20 Subjective: Pt seen for followup re: acute pancreatitis. c/o abdo pain in LLQ. - Objective Vital Signs & Weight: Vital Signs (12 hours) Temp Pulse Ox 06/14/19 12:00 99.5 F 06/14/19 11:00 99.5 F 06/14/19 08:00 99.8 F H 99 06/14/19 07:00 98.2 F 06/14/19 04:00 100.6 F H 06/14/19 02:00 100.2 F H Weight Weight 152 lb 12.485 oz Most Recent Monitor Data Heart Rate from ECG 94 NIBP 109/79 NIBP BP-Mean 89 Respiration from ECG 17 SpO2 96 I&O: 06/13/19 06/14/19 06/15/19 06:59 06:59 06:59 Intake Total 6405.3 3598.7 350 Output Total 3512 6170 2165 Balance 2893.3 -2571.3 -1815 Result Diagrams: 06/14/19 05:39 06/14/19 05:39 Additional Labs: Accuchecks 06/14/19 06/14/19 06/14/19 13:02 11:04 09:13 POC Glucose 114 H 133 H 133 H 06/14/19 06/14/19 06/14/19 07:21 05:20 03:11 POC Glucose 136 H 140 H 133 H 06/14/19 06/13/19 06/13/19 01:07 23:12 21:26 POC Glucose 122 H 127 H 125 H 06/13/19 06/13/19 06/13/19 19:21 15:32 13:06 POC Glucose 136 H 121 H 143 H 06/13/19 11:08 POC Glucose 121 H ROS - Review of Systems Cardiovascular: denies: chest pain, palpitations, orthopnea, paroxysmal noc. dyspnea, edema, light headedness Gastrointestinal: reports: nausea, abdominal pain. denies: vomitting, diarrhea , constipation, melena, hematochezia - Medication Medications: Active Medications Generic Name Dose Route Start Last Admin Trade Name Freq PRN Reason Stop Dose Admin Acetaminophen 650 mg 06/10/19 16:37 06/14/19 09:38 Tylenol PO 650 mg Q4H PRN Administration Headache/Fever/Mild Pain (1-3) Famotidine 20 mg 06/10/19 21:00 06/14/19 08:06 Pepcid SLOW IVP 20 mg Q12HR AUDIE Administration Heparin Sodium (Porcine) 5,000 units 06/11/19 21:00 06/14/19 08:06 Heparin SC 5,000 units TID AUDIE Administration Hydromorphone HCl 0.5 mg 06/12/19 12:08 06/14/19 12:04 Dilaudid SLOW IVP 0.5 mg Q2H PRN Administration Severe Pain (7-10) Insulin Human Regular 100 101 mls @ 0 mls/hr 06/11/19 14:00 06/13/19 08:36 units/ Sodium Chloride IVPB 101 mls INF AUDIE Administration Protocol Titrate Dextrose/Water 1,000 mls @ 40 mls/hr 06/11/19 15:56 06/13/19 15:54 Dextrose 10% In Water IV 1,000 mls .Q24H AUDIE Administration As Directed Dextrose/Lactated Ringer's 1,000 mls @ 75 mls/hr 06/13/19 16:05 06/14/19 09: 39 D5 Lr IV 1,000 mls .[id number] AUDIE Administration Ondansetron HCl 4 mg 06/10/19 16:37 06/14/19 12:04 Zofran IVP 4 mg Q6H PRN Administration Nausea/Vomiting Polyethylene Glycol 17 gm 06/14/19 12:00 06/14/19 12:04 Miralax PO 06/14/19 14:00 17 gm 1200 AUDIE Administration Sodium Chloride 10 ml 06/13/19 09:00 06/14/19 08:06 Flush - Normal Saline IVF 10 ml Q12HR AUDIE Administration - Exam NAD Eye: anicteric sclera ENT: normocephalic atraumatic, moist mucosa Neck: supple Heart: RRR Respiratory: CTAB Gastrointestinal: tender to palpation, distended Extremities: no edema Musculoskeletal: normal strength Psychiatric: normal affect, normal behavior Hosp A/P (1) Acute pancreatitis Code(s): K85.90 - ACUTE PANCREATITIS WITHOUT NECROSIS OR INFECTION, UNSP Status: Acute (2) Marijuana use Code(s): F12.90 - CANNABIS USE, UNSPECIFIED, UNCOMPLICATED Status: Chronic (3) Hypertriglyceridemia Code(s): E78.1 - PURE HYPERGLYCERIDEMIA Status: Chronic (4) Hypocalcemia Code(s): E83.51 - HYPOCALCEMIA Status: Resolved - Plan Phosphorus bring replaced. On insulin drip for hypertriglyceridemia. calcium normal at 7.8. Had small amount oral fluid intake as well as small amount of Jello.
--- NOTE | 2019-06-14 14:03 | PRG ---
DATE OF SERVICE: 06/14/2019 SUBJECTIVE: Ms. Snyder appears more comfortable today. She is still asking for pain medicine every 2 hours. She had a small bowel movement yesterday. OBJECTIVE: VITAL SIGNS: Temperature is 99.5, blood pressure 109/79, pulse 94. GENERAL: She is in no acute distress, but still appears uncomfortable. LUNGS: Clear to auscultation bilaterally. HEART: Regular rate and rhythm. ABDOMEN: Still somewhat distended and bowel sounds are present and shows tenderness diffusely, but little less tender today. EXTREMITIES: No lower extremity edema. LABORATORY DATA: White blood cell count 7.0, hemoglobin 11.1, platelets 178. Creatinine 0.6. IMPRESSION: 1. Severe acute recurrent pancreatitis secondary to hypertriglyceridemia. 2. Hypocalcemia, improved. RECOMMENDATIONS: 1. She has been tolerating clear liquids well today. She had a MightyShake which she kept down well. We will try to advance to a low-fat diet. 2. She has been started on gemfibrozil. 3. Hopefully, we will be able to start titrating down the opioids as her pain improves. Job ID: [id number]
[2019-06-14] MEDS: Gemfibrozil 600 MG TAB PO SCH (15:44)
--- NOTE | 2019-06-14 18:01 | PRG ---
DATE OF SERVICE: 06/14/2019 SERVICE: Pulmonary Medicine. INTERVAL HISTORY: The patient's abdominal discomfort is stabilizing. She is tolerating meager amounts of p.o. She denies any current fevers or chills. There were no significant overnight events other than a low-grade temperature of 100.4. PHYSICAL EXAMINATION: VITAL SIGNS: Afebrile currently. Pulse 113, blood pressure 123/74, respirations 23, and saturation 100% on room air. GENERAL: The patient is awake and alert, in no apparent distress. LUNGS: Decent air entry. There is no prolonged expiratory phase or wheezing. No crackles are appreciated. HEART: Normal rate. Regular. ABDOMEN: Soft and distended. It is exquisitely tender to palpation. There is rebound. Bowel sounds are active today. : Craig catheter in place. NEUROLOGIC: Grossly nonfocal. LABORATORY DATA: Hemoglobin 11.1. Basic metabolic profile is otherwise unremarkable. Phosphorus 1.7. Blood sugar is ranging from 106 to 136. Urinalysis and toxicology are unremarkable. ASSESSMENT: 1. Acute pancreatitis, severe. 2. Hypertriglyceridemia. DISCUSSION AND PLAN: We will continue to aggressively push p.o. Hopefully, we can avoid an enteric catheter. We will repeat laboratories in the morning including hemoglobin. If she becomes more unstable before then, we will need to repeat a hemoglobin sooner. Heparin will be interrupted for the time being. As the hemoglobin stable until tomorrow morning, we can resume it. She needs to remain in the ICU. Mobilization efforts will be pursued starting tomorrow. Job ID: [id number]
[2019-06-14] MEDS: Senokot S 8.6-50 MG TAB PO SCH (20:08)
[2019-06-15] MEDS: Acetaminophen 325 MG TAB PO PRN (01:32)
[2019-06-15] MEDS: HUMULIN R 100 UNITS in Sodium Chloride 0.9% 100 ML IVPB SCH (03:45)
[2019-06-15] MEDS: HYDROmorphone 0.5 MG/0.5 ML SYRINGE SLOW IVP PRN ×9 (04:03→22:29)
[2019-06-15 04:19] LABS: Hemoglobin 9.8 g/dL (12.0-16.0)
[2019-06-15 04:37] LABS: Anion Gap 12 mmol/L (10-20); BUN (Urea Nitrogen) 5 mg/dL (7.0-18.7); Calc. Creatinine Clearance 135 mL/min (70-130); Calcium 8.1 mg/dL (7.8-10.44); Carbon Dioxide 25 mmol/L (22-29); Chloride 100 mmol/L (98-107); Estimated GFR-MDRD Greater than 90; Glucose 124 mg/dL (70-105); Potassium 3.8 mmol/L (3.5-5.1); Sodium 133 mmol/L (136-145)
[2019-06-15] MEDS: Dextrose 10% in Water 1,000 ML IV SCH (06:09)
[2019-06-15] MEDS: Senokot S 8.6-50 MG TAB PO SCH ×2 (08:13→20:24)
[2019-06-15] MEDS: Gemfibrozil 600 MG TAB PO SCH ×2 (08:13→17:36)
[2019-06-15] MEDS: Famotidine/PF 20 mg/2ml Vial SLOW IVP SCH ×2 (08:13→20:24)
[2019-06-15] MEDS: Polyethylene Glycol 3350 17 GM Packet PO SCH (08:17)
[2019-06-15] MEDS ORDERED: Potassium Chloride 40 MEQ in Sodium Chloride 0.9% 500 ML IVPB SCH (13:30)
--- NOTE | 2019-06-15 14:24 | PRG ---
DATE OF SERVICE: 06/15/2019 SERVICE: Pulmonary Medicine. INTERVAL HISTORY: The patient looks quite a bit less toxic today. She looks to be more comfortable. Her Dilaudid is carrying in her a touch longer. She denies any current fevers or cough. There has been no interval change to her condition. She continues to have exquisite abdominal discomfort. PHYSICAL EXAMINATION: VITAL SIGNS: Afebrile. Pulse 88, blood pressure 102/76, respirations 19, saturation 96% on room air. GENERAL: The patient is awake and alert, in no apparent distress. LUNGS: Decent air entry. No prolonged expiratory phase or wheezing is appreciated. HEART: Normal rate. Regular. ABDOMEN: Distended. It is tender to palpation throughout. No rebound or guarding is appreciated. MUSCULOSKELETAL: No cyanosis or clubbing. There is no pitting in the bilateral lower extremities. NEUROLOGIC: Grossly nonfocal. : Craig catheter in place. LABORATORY DATA: Triglycerides continue to trend downward. Basic metabolic profile is otherwise unremarkable. Sodium is trending back up into the normal range with a normal creatinine of 0.61. Blood sugars are ranging from 105 to 140. ASSESSMENT: 1. Acute pancreatitis, severe. 2. Hypertriglyceridemia. DISCUSSION AND PLAN: The patient appears to be tolerating some gentle p.o. As such, we will interrupt her insulin drip. We will discontinue Accu-Cheks as well. We will give her a laboratory holiday tomorrow morning. We will continue gentle hydration with D5 LR. A small dose of potassium will be provided. She is stable for transition out of the ICU to the intermediate care unit. Job ID: [id number]
--- NOTE | 2019-06-15 14:29 | PDOC.HOSPP ---
- Subjective Encounter Date: 06/15/19 Encounter Time: 08:40 Subjective: Pt seen for followup re: acute pancreatitis. Pain in epigastrium and LLQ. nausea. - Objective Vital Signs & Weight: Vital Signs (12 hours) Temp Pulse Ox 06/15/19 12:00 99.4 F 06/15/19 08:00 98.3 F 06/15/19 07:35 97 06/15/19 04:00 99.3 F Weight Weight 146 lb 6.191 oz Most Recent Monitor Data Heart Rate from ECG 109 NIBP 102/76 NIBP BP-Mean 84 Respiration from ECG 19 SpO2 96 I&O: 06/14/19 06/15/19 06/16/19 06:59 06:59 06:59 Intake Total 3598.7 3070.4 313 Output Total 6170 5240 1000 Balance -2571.3 -2169.6 -687 Result Diagrams: 06/15/19 04:05 06/15/19 04:05 Additional Labs: Accuchecks 06/15/19 06/15/19 06/15/19 12:17 10:29 08:26 POC Glucose 105 140 H 116 H 06/15/19 06/15/19 06/15/19 06:11 03:53 02:21 POC Glucose 98 130 H 141 H 06/14/19 06/14/19 06/14/19 23:58 21:57 20:16 POC Glucose 115 H 109 99 06/14/19 06/14/19 17:10 15:14 POC Glucose 118 H 106 Labs and MARs reviewed by me EKG Reviewed by me: Yes (Tele; sinus tachycardia) ROS - Review of Systems Constitutional: denies: fever, chills, sweats, weakness, malaise Gastrointestinal: reports: nausea, abdominal pain. denies: vomitting, diarrhea , constipation, melena, hematochezia - Medication Medications: Active Medications Generic Name Dose Route Start Last Admin Trade Name Freq PRN Reason Stop Dose Admin Acetaminophen 650 mg 06/10/19 16:37 06/15/19 01:32 Tylenol PO 650 mg Q4H PRN Administration Headache/Fever/Mild Pain (1-3) Famotidine 20 mg 06/10/19 21:00 06/15/19 08:13 Pepcid SLOW IVP 20 mg Q12HR AUDIE Administration Gemfibrozil 600 mg 06/14/19 16:30 06/15/19 08:13 Lopid PO 600 mg BID-AC AUDIE Administration Heparin Sodium (Porcine) 5,000 units 06/11/19 21:00 06/14/19 14:04 Heparin SC 5,000 units TID AUDIE Administration Hydromorphone HCl 0.5 mg 06/12/19 12:08 06/15/19 12:54 Dilaudid SLOW IVP 0.5 mg Q2H PRN Administration Severe Pain (7-10) Dextrose/Water 1,000 mls @ 40 mls/hr 06/11/19 15:56 06/15/19 06:09 Dextrose 10% In Water IV 1,000 mls .Q24H AUDIE Administration As Directed Dextrose/Lactated Ringer's 1,000 mls @ 75 mls/hr 06/13/19 16:05 06/14/19 23: 57 D5 Lr IV 1,000 mls .[id number] AUDIE Administration Ondansetron HCl 4 mg 06/10/19 16:37 06/14/19 12:04 Zofran IVP 4 mg Q6H PRN Administration Nausea/Vomiting Polyethylene Glycol 17 gm 06/15/19 09:00 06/15/19 08:17 Miralax PO 17 gm DAILY AUDIE Administration Senna/Docusate Sodium 1 tab 06/14/19 21:00 06/15/19 08:13 Senokot S PO 1 tab BID AUDIE Administration Sodium Chloride 10 ml 06/13/19 09:00 06/15/19 08:17 Flush - Normal Saline IVF 10 ml Q12HR AUDIE Administration - Exam NAD Eye: anicteric sclera ENT: moist mucosa Neck: supple, symmetric Heart: RRR, no murmur Respiratory: CTAB Gastrointestinal: soft, tender to palpation, distended Extremities: no clubbing Skin: normal turgor Neurological: no weakness Psychiatric: normal affect, normal behavior Hosp A/P (1) Acute pancreatitis Code(s): K85.90 - ACUTE PANCREATITIS WITHOUT NECROSIS OR INFECTION, UNSP Status: Acute (2) Marijuana use Code(s): F12.90 - CANNABIS USE, UNSPECIFIED, UNCOMPLICATED Status: Chronic (3) Hypertriglyceridemia Code(s): E78.1 - PURE HYPERGLYCERIDEMIA Status: Chronic (4) Hypocalcemia Code(s): E83.51 - HYPOCALCEMIA Status: Resolved - Plan out of bed/ambulate Slow to improve, still needing pain medications. Trying to increase oral intake.
[2019-06-15] MEDS: Heparin 5,000 UNITS/ML VIAL SC SCH ×2 (14:59→20:24)
--- NOTE | 2019-06-15 16:03 | PRG ---
DATE OF SERVICE: 06/15/2019 SUBJECTIVE: Ms. Snyder is much more comfortable today. She is still taking very little oral intake. OBJECTIVE: VITAL SIGNS: Temperature 99.6, pulse 109, and blood pressure 102/76. GENERAL: She is in no acute distress. LUNGS: Clear to auscultation bilaterally. HEART: Regular rate and rhythm. ABDOMEN: can closing machine tender diffusely, but less so. Her bowel sounds are active. EXTREMITIES: No lower extremity edema. LABORATORY DATA: White blood cell count 7.0, hemoglobin 9.8, and platelets 178. Triglycerides 387. Creatinine 0.61. IMPRESSION: 1. Acute recurrent hypertriglyceridemia-induced pancreatitis. This has been severe, but she is showing improvement today. 2. Hypocalcemia, improved. RECOMMENDATIONS: 1. Low-fat diet if she tolerates. 2. Gemfibrozil. Job ID: [id number]
[2019-06-15] MEDS: Ondansetron PF 4 MG/2 ML Vial IVP PRN (20:24)
[2019-06-15] MEDS: Dextrose 5%-Lactated Ringers 1,000 ML IV SCH (20:25)
[2019-06-16] MEDS: HYDROmorphone 0.5 MG/0.5 ML SYRINGE SLOW IVP PRN ×8 (00:29→23:07)
[2019-06-16] MEDS: Gemfibrozil 600 MG TAB PO SCH ×2 (05:44→17:11)
[2019-06-16 06:07] LABS: #Eosinphils 0.2 thou/uL (0.0-0.7); #Lymphocytes 1.3 thou/uL (1.20-3.40); #Monocytes 0.4 thou/uL (0.11-0.59); %Basophils 0.3 % (0.0-1.0); %Eosinophils 1.9 % (0.0-10.0); %Lymphocytes 16.2 % (21.0-51.0); %Monocytes 4.7 % (0.0-10.0); %Neutrophils 76.9 % (42.0-75.0); Hemoglobin 11.3 g/dL (12.0-16.0); Mean Corpuscular HGB CONC 32.1 g/dL (32.0-36.0); Mean Corpuscular Hemoglobin 28.4 pg (27.0-31.0); Mean Corpuscular Volume 88.4 fL (78.0-98.0); Mean Platelet Volume 6.7 fL (7.4-10.4); Platelet Count 246 thou/uL (130-400); RBC Distribution Width 12.6 % (11.5-14.5); Red Blood Cell (RBC) Count 3.98 mill/uL (4.20-5.40); White Blood Cell (WBC) Count 7.9 thou/uL (4.8-10.8)
[2019-06-16 06:27] LABS: Anion Gap 18 mmol/L (10-20); BUN (Urea Nitrogen) 7 mg/dL (7.0-18.7); Calc. Creatinine Clearance 122 mL/min (70-130); Calcium 9.1 mg/dL (7.8-10.44); Carbon Dioxide 20 mmol/L (22-29); Chloride 98 mmol/L (98-107); Estimated GFR-MDRD Greater than 90; Glucose 121 mg/dL (70-105); Phosphorus 4.3 mg/dL (2.3-4.7); Potassium 3.9 mmol/L (3.5-5.1); Sodium 132 mmol/L (136-145)
[2019-06-16] MEDS: Famotidine/PF 20 mg/2ml Vial SLOW IVP SCH ×2 (08:41→20:54)
[2019-06-16] MEDS: Polyethylene Glycol 3350 17 GM Packet PO SCH (08:41)
[2019-06-16] MEDS: Senokot S 8.6-50 MG TAB PO SCH ×2 (08:41→20:54)
[2019-06-16] MEDS: Dextrose 5%-Lactated Ringers 1,000 ML IV SCH (08:41)
[2019-06-16] MEDS: Heparin 5,000 UNITS/ML VIAL SC SCH ×3 (08:41→20:54)
[2019-06-16] MEDS ORDERED: Morphine 4 MG/ML VIAL SLOW IVP PRN (09:53)
--- NOTE | 2019-06-16 10:59 | PRG ---
DATE OF SERVICE: 06/16/2019 SUBJECTIVE: Ms. Snyder is taking small amounts by mouth, but is tolerating some solid diet. Her pain is improving. She wants to get up and take a shower out of the hospital bed. OBJECTIVE: VITAL SIGNS: Temperature 99.5, pulse 117, and blood pressure 93/80. GENERAL: She appears more comfortable today. Her boyfriend is at bedside and helps translate. LUNGS: Clear to auscultation bilaterally. HEART: Tachycardic. S1 and S2. ABDOMEN: Soft, tender diffusely. She has diffuse abdominal tenderness, but her tenderness is significantly less than it was yesterday. EXTREMITIES: No lower extremity edema. LABORATORY DATA: White blood cell count 7.9, hemoglobin 11.3, platelets 246, and creatinine 0.64. IMPRESSION: 1. Acute recurrent severe hyper-triglyceride induced pancreatitis. She appears to be slowly improving. 2. Hypocalcemia, resolved. RECOMMENDATIONS: 1. Continue low-fiber diet as she tolerates. 2. Gemfibrozil. 3. Her hemoglobin is noted to have increased today. If this increases further tomorrow, we may need to increase her fluid rate if she is becoming hemoconcentrated again. For now, she seems to be doing better overall. Job ID: [id number]
--- NOTE | 2019-06-16 13:55 | PRG ---
DATE OF SERVICE: 06/16/2019 SERVICE: Pulmonary Medicine. INTERVAL HISTORY: The patient is doing outstanding from respiratory standpoint. She is breathing comfortably. She has no complaints of chest discomfort, nausea, or vomiting. Her heart rate remains a little tachycardic. She gets a little touch lightheaded when she stands up. That being said, her belly pain is much improved, and she is tolerating full p.o. PHYSICAL EXAMINATION: VITAL SIGNS: Currently, afebrile. Her T-max overnight is 100.5. Pulse 120, blood pressure 109/79, respirations 24, and saturation 95% on room air. GENERAL: The patient is awake and alert, in no apparent distress. LUNGS: Good air entry with no prolonged expiratory phase. I do not appreciate any crackles today. HEART: Normal rate, regular. ABDOMEN: Soft. Distended. Bowel sounds are present. There is much less tenderness to palpation. No rebound is present today. NEUROLOGIC: Grossly nonfocal. LABORATORY DATA: Hemoglobin has improved to 11.3, WBC 7.9, platelets 246,000. Sodium is 132. Basic metabolic profile is otherwise unremarkable. Phosphorus 4.3. Urinalysis is unremarkable. Urine drug screen is positive for cannabinoids. ASSESSMENT: 1. Acute pancreatitis, severe. 2. Hypertriglyceridemia. DISCUSSION AND PLAN: The patient is doing absolutely wonderful at this point. We can transition her out of the IMCU to the medical unit. We will continue mobilization efforts through time. At this point, the patient has no further requirements for inpatient Pulmonary or Critical Care opinion. When she leaves the IMCU, I will sign off. Please call with additional questions or concerns through time. Job ID: [id number]
--- NOTE | 2019-06-16 17:59 | PDOC.HOSPP ---
- Subjective Encounter Date: 06/16/19 Encounter Time: 10:00 Subjective: Pt seen for followup re: acute pancreatitis. feels better. Tolerating some diet. - Objective Vital Signs & Weight: Vital Signs (12 hours) Temp Pulse Pulse BP BP BP Pulse Ox 06/16/19 15:18 99.8 F H 06/16/19 11:29 99.4 F 06/16/19 11:28 120 H 117 H 109/79 127/75 124/80 06/16/19 07:59 95 06/16/19 07:11 99.5 F Pulse Ox Pulse Ox 06/16/19 15:18 06/16/19 11:29 06/16/19 11:28 97 95 06/16/19 07:59 06/16/19 07:11 Weight Weight 138 lb 12.8 oz Most Recent Monitor Data Heart Rate from ECG 108 NIBP 116/73 NIBP BP-Mean 87 Respiration from ECG 21 SpO2 96 I&O: 06/15/19 06/16/19 06/17/19 06:59 06:59 06:59 Intake Total 3070.4 2371 Output Total 5240 3500 525 Balance -2169.6 -1129 -525 Result Diagrams: 06/16/19 05:08 06/16/19 05:08 Additional Labs: Accuchecks 06/15/19 18:07 POC Glucose 99 Labs and MARs reviewed by me EKG Reviewed by me: Yes (Tele: sinus tachycardia) ROS - Review of Systems Cardiovascular: denies: chest pain, palpitations, orthopnea, paroxysmal noc. dyspnea, edema, light headedness Gastrointestinal: reports: nausea, abdominal pain. denies: vomitting, diarrhea , constipation, melena, hematochezia - Medication Medications: Active Medications Generic Name Dose Route Start Last Admin Trade Name Freq PRN Reason Stop Dose Admin Acetaminophen 650 mg 06/10/19 16:37 06/15/19 01:32 Tylenol PO 650 mg Q4H PRN Administration Headache/Fever/Mild Pain (1-3) Famotidine 20 mg 06/10/19 21:00 06/16/19 08:41 Pepcid SLOW IVP 20 mg Q12HR AUDIE Administration Gemfibrozil 600 mg 06/14/19 16:30 06/16/19 17:11 Lopid PO 600 mg BID-AC AUDIE Administration Heparin Sodium (Porcine) 5,000 units 06/11/19 21:00 06/16/19 15:13 Heparin SC 5,000 units TID AUDIE Administration Hydromorphone HCl 0.25 mg 06/16/19 13:35 06/16/19 15:08 Dilaudid SLOW IVP 0.25 mg Q2H PRN Administration Severe Pain (7-10) Dextrose/Lactated Ringer's 1,000 mls @ 75 mls/hr 06/15/19 18:45 06/16/19 08: 41 D5 Lr IV 1,000 mls .[id number] AUDIE Administration Ondansetron HCl 4 mg 06/10/19 16:37 06/15/19 20:24 Zofran IVP 4 mg Q6H PRN Administration Nausea/Vomiting Polyethylene Glycol 17 gm 06/15/19 09:00 06/16/19 08:41 Miralax PO 17 gm DAILY AUDIE Administration Senna/Docusate Sodium 1 tab 06/14/19 21:00 06/16/19 08:41 Senokot S PO 1 tab BID AUDIE Administration Sodium Chloride 10 ml 06/13/19 09:00 06/16/19 08:43 Flush - Normal Saline IVF 10 ml Q12HR AUDIE Administration - Exam NAD Eye: anicteric sclera ENT: no oropharyngeal lesions, moist mucosa Neck: supple, no lymphadenopathy Heart - other findings: S1, S2, tachy, reg Respiratory: CTAB Gastrointestinal: soft Gastrointestinal - other findings: mild epigastric tenderness, no guarding or rigidity Neurological: no weakness Psychiatric: normal affect, normal behavior Hosp A/P (1) Acute pancreatitis Code(s): K85.90 - ACUTE PANCREATITIS WITHOUT NECROSIS OR INFECTION, UNSP Status: Acute (2) Hyponatremia Code(s): E87.1 - HYPO-OSMOLALITY AND HYPONATREMIA Status: Acute (3) Marijuana use Code(s): F12.90 - CANNABIS USE, UNSPECIFIED, UNCOMPLICATED Status: Chronic (4) Hypertriglyceridemia Code(s): E78.1 - PURE HYPERGLYCERIDEMIA Status: Chronic (5) Hypocalcemia Code(s): E83.51 - HYPOCALCEMIA Status: Resolved - Plan out of bed/ambulate Slowly improving. Able to tolerate some diet. Hyponatremia mild, likely asymptomatic.
[2019-06-16] MEDS: Ondansetron PF 4 MG/2 ML Vial IVP PRN (20:54)
[2019-06-16] MEDS: Acetaminophen 325 MG TAB PO PRN (23:08)
[2019-06-17] MEDS: HYDROmorphone 0.5 MG/0.5 ML SYRINGE SLOW IVP PRN ×2 (02:59→08:39)
[2019-06-17] MEDS: Dextrose 5%-Lactated Ringers 1,000 ML IV SCH ×3 (03:06→20:02)
[2019-06-17 06:20] LABS: #Eosinphils 0.1 thou/uL (0.0-0.7); #Monocytes 0.9 thou/uL (0.11-0.59); #Neutrophils 6.6 thou/uL (1.40-6.50); %Basophils 0.2 % (0.0-1.0); %Lymphocytes 12.1 % (21.0-51.0); %Neutrophils 76.8 % (42.0-75.0); Hemoglobin 11.1 g/dL (12.0-16.0); Mean Corpuscular HGB CONC 34.8 g/dL (32.0-36.0); Mean Corpuscular Hemoglobin 30.5 pg (27.0-31.0); Mean Corpuscular Volume 87.6 fL (78.0-98.0); Mean Platelet Volume 6.3 fL (7.4-10.4); Platelet Count 271 thou/uL (130-400); RBC Distribution Width 12.3 % (11.5-14.5); Red Blood Cell (RBC) Count 3.65 mill/uL (4.20-5.40); White Blood Cell (WBC) Count 8.5 thou/uL (4.8-10.8)
[2019-06-17 06:28] LABS: Anion Gap 15 mmol/L (10-20); BUN (Urea Nitrogen) 8 mg/dL (7.0-18.7); Calc. Creatinine Clearance 119 mL/min (70-130); Calcium 9.1 mg/dL (7.8-10.44); Carbon Dioxide 23 mmol/L (22-29); Chloride 98 mmol/L (98-107); Estimated GFR-MDRD Greater than 90; Glucose 129 mg/dL (70-105); Potassium 3.7 mmol/L (3.5-5.1); Sodium 132 mmol/L (136-145)
[2019-06-17] MEDS: Heparin 5,000 UNITS/ML VIAL SC SCH ×3 (08:30→20:08)
[2019-06-17] MEDS: Polyethylene Glycol 3350 17 GM Packet PO SCH (08:32)
[2019-06-17] MEDS: Gemfibrozil 600 MG TAB PO SCH ×2 (08:32→16:15)
[2019-06-17] MEDS: Senokot S 8.6-50 MG TAB PO SCH ×2 (08:32→20:05)
[2019-06-17] MEDS: Famotidine/PF 20 mg/2ml Vial SLOW IVP SCH ×2 (08:32→20:02)
[2019-06-17] MEDS ORDERED: HYDROmorphone 0.5 MG/0.5 ML SYRINGE SLOW IVP PRN (10:22)
--- NOTE | 2019-06-17 10:36 | PRG ---
DATE OF SERVICE: 06/17/2019 SERVICE: Pulmonary Medicine. INTERVAL HISTORY: The patient is doing fine from respiratory standpoint. That being said, whenever she eats, she has increasing abdominal discomfort. She denies any current fevers or chills. There are no significant overnight events. PHYSICAL EXAMINATION: VITAL SIGNS: Afebrile currently with a T-max of 100.5 two days ago; pulse 103; blood pressure 106/70; respirations 25; saturation 97%, currently on room air. GENERAL: The patient is awake and alert, in no apparent distress. LUNGS: Decent air entry. There is no prolonged expiratory phase or wheezing present. HEART: Normal rate. Regular. ABDOMEN: Soft, nontender, nondistended. Bowel sounds are positive. MUSCULOSKELETAL: No cyanosis or clubbing. No pitting in the bilateral lower extremities. NEUROLOGIC: Grossly nonfocal. LABORATORY DATA: WBC 8.5, hemoglobin 11.1, platelets 271,000. Basic metabolic profile is otherwise unremarkable. Triglycerides are gently trending upward to 427. Potassium 3.7. Anion gap and bicarb are normal. ASSESSMENT: 1. Acute pancreatitis, severe. 2. Hypertriglyceridemia. DISCUSSION AND PLAN: The patient is doing okay from a metabolic standpoint. It does not appear that she has any acute inflammatory issues. She continues to have some discomfort with eating. We will continue our mobilization efforts through time and pain control. At this point, she is stable for transition out of the IMCU, but they will not take Dilaudid on the floor. I will make an effort at converting her over to oral pain medications. Job ID: [id number]
--- NOTE | 2019-06-17 14:38 | PRG ---
DATE OF SERVICE: 06/17/2019 SUBJECTIVE: Ms. Snyder seems to be a little worse today. She is not touching her food this afternoon and complains of a little bit more pain. OBJECTIVE: VITAL SIGNS: Her temperature is 99.6, pulse 92, blood pressure 107/70. GENERAL: She is in no acute distress. She is awake and alert. LUNGS: Clear to auscultation bilaterally. HEART: Regular rate and rhythm. ABDOMEN: She does have tenderness in the epigastric to left upper quadrant. Nontender in the right abdomen. This overall is improved. However, her bowel sounds are not as active today. LABORATORY DATA: Her hemoglobin is 11.1. Creatinine 0.65. Triglycerides 427. IMPRESSION: 1. Acute recurrent severe hypertriglyceridemia-induced pancreatitis. She has had a slight setback today as she has an increasing oral intake. We will continue to push the low-fat diet, she tolerates. 2. Hypocalcemia, resolved. RECOMMENDATIONS: 1. Low-fat diet. 2. Gemfibrozil. Job ID: [id number]
--- NOTE | 2019-06-17 15:28 | PDOC.HOSPP ---
- Subjective Encounter Date: 06/17/19 Encounter Time: 10:40 Subjective: Pt seen for followup re: acute pancreatitis. feels better today. - Objective Vital Signs & Weight: Vital Signs (12 hours) Temp Pulse Ox 06/17/19 15:07 99.0 F 06/17/19 10:35 99.6 F 06/17/19 08:00 96 06/17/19 07:10 99.2 F Weight Weight 137 lb 8 oz Most Recent Monitor Data Heart Rate from ECG 103 NIBP 81/53 NIBP BP-Mean 62 Respiration from ECG 24 SpO2 96 I&O: 06/16/19 06/17/19 06/18/19 06:59 06:59 06:59 Intake Total 2371 600 825 Output Total 3500 1750 Balance -1129 -1150 825 Result Diagrams: 06/17/19 05:57 06/17/19 05:57 Additional Labs: Labs and MARs reviewed by me EKG Reviewed by me: Yes (Tele: sinus tachycardia) ROS - Review of Systems Cardiovascular: denies: chest pain, palpitations, orthopnea, paroxysmal noc. dyspnea, edema, light headedness Gastrointestinal: reports: nausea, abdominal pain. denies: vomitting, diarrhea , constipation, melena, hematochezia - Medication Medications: Active Medications Generic Name Dose Route Start Last Admin Trade Name Bullq PRN Reason Stop Dose Admin Acetaminophen 650 mg 06/10/19 16:37 06/16/19 23:08 Tylenol PO 650 mg Q4H PRN Administration Headache/Fever/Mild Pain (1-3) Famotidine 20 mg 06/10/19 21:00 06/17/19 08:32 Pepcid SLOW IVP 20 mg Q12HR AUDIE Administration Gemfibrozil 600 mg 06/14/19 16:30 06/17/19 08:32 Lopid PO 600 mg BID-AC AUDIE Administration Heparin Sodium (Porcine) 5,000 units 06/11/19 21:00 06/17/19 08:30 Heparin SC 5,000 units TID AUDIE Administration Hydromorphone HCl 0.25 mg 06/17/19 10:22 06/17/19 12:00 Dilaudid SLOW IVP 0.25 mg Q2H PRN Administration Severe Pain (7-10) Dextrose/Lactated Ringer's 1,000 mls @ 75 mls/hr 06/15/19 18:45 06/17/19 08: 33 D5 Lr IV 1,000 mls .[id number] AUDIE Administration Ondansetron HCl 4 mg 06/10/19 16:37 06/16/19 20:54 Zofran IVP 4 mg Q6H PRN Administration Nausea/Vomiting Polyethylene Glycol 17 gm 06/15/19 09:00 06/17/19 08:32 Miralax PO 17 gm DAILY AUDIE Administration Senna/Docusate Sodium 1 tab 06/14/19 21:00 06/17/19 08:32 Senokot S PO 1 tab BID AUDIE Administration Sodium Chloride 10 ml 06/13/19 09:00 06/17/19 08:33 Flush - Normal Saline IVF 10 ml Q12HR AUDIE Administration - Exam NAD Eye: anicteric sclera ENT: moist mucosa Neck: supple Heart - other findings: S1, S2, tachy, reg Respiratory: CTAB Gastrointestinal: soft, normal bowel sounds, tender to palpation Gastrointestinal - other findings: tender epigastrium Extremities: no edema Skin: normal turgor Psychiatric: normal affect Hosp A/P (1) Acute pancreatitis Code(s): K85.90 - ACUTE PANCREATITIS WITHOUT NECROSIS OR INFECTION, UNSP Status: Acute (2) Hyponatremia Code(s): E87.1 - HYPO-OSMOLALITY AND HYPONATREMIA Status: Acute (3) Marijuana use Code(s): F12.90 - CANNABIS USE, UNSPECIFIED, UNCOMPLICATED Status: Chronic (4) Hypertriglyceridemia Code(s): E78.1 - PURE HYPERGLYCERIDEMIA Status: Chronic (5) Hypocalcemia Code(s): E83.51 - HYPOCALCEMIA Status: Resolved - Plan out of bed/ambulate Slowly improving. Able to tolerate some diet. Hyponatremia stable. Move to floor when off of dilaudid. Continue gemfibrozil.
[2019-06-17] MEDS: HYDROcodone/Acetaminophen 10/325 mg Tablet PO PRN ×2 (16:14→20:02)
[2019-06-18] MEDS: HYDROcodone/Acetaminophen 10/325 mg Tablet PO PRN ×4 (04:00→20:53)
[2019-06-18] MEDS: Senokot S 8.6-50 MG TAB PO SCH ×2 (09:14→20:51)
[2019-06-18] MEDS: Gemfibrozil 600 MG TAB PO SCH ×2 (09:14→16:14)
[2019-06-18] MEDS: Famotidine/PF 20 mg/2ml Vial SLOW IVP SCH (09:14)
[2019-06-18] MEDS: Polyethylene Glycol 3350 17 GM Packet PO SCH (09:15)
[2019-06-18] MEDS: Heparin 5,000 UNITS/ML VIAL SC SCH ×3 (09:15→20:52)
[2019-06-18 12:17] LABS: #Eosinphils 0.1 thou/uL (0.0-0.7); #Lymphocytes 1.3 thou/uL (1.20-3.40); #Monocytes 0.7 thou/uL (0.11-0.59); #Neutrophils 9.7 thou/uL (1.40-6.50); %Eosinophils 0.9 % (0.0-10.0); %Lymphocytes 10.8 % (21.0-51.0); %Neutrophils 82.3 % (42.0-75.0); Hemoglobin 9.9 g/dL (12.0-16.0); Mean Corpuscular HGB CONC 35.9 g/dL (32.0-36.0); Mean Corpuscular Volume 86.3 fL (78.0-98.0); Mean Platelet Volume 6.2 fL (7.4-10.4); Platelet Count 281 thou/uL (130-400); RBC Distribution Width 12.3 % (11.5-14.5); Red Blood Cell (RBC) Count 3.18 mill/uL (4.20-5.40); White Blood Cell (WBC) Count 11.8 thou/uL (4.8-10.8)
[2019-06-18 12:20] LABS: Anion Gap 13 mmol/L (10-20); BUN (Urea Nitrogen) 9 mg/dL (7.0-18.7); Calc. Creatinine Clearance 134 mL/min (70-130); Calcium 8.9 mg/dL (7.8-10.44); Carbon Dioxide 25 mmol/L (22-29); Chloride 96 mmol/L (98-107); Estimated GFR-MDRD Greater than 90; Glucose 114 mg/dL (70-105); Potassium 3.9 mmol/L (3.5-5.1); Sodium 130 mmol/L (136-145)
--- NOTE | 2019-06-18 13:25 | PRG ---
DATE OF SERVICE: 06/18/2019 SERVICE: Pulmonary Medicine. INTERVAL HISTORY: The patient is doing really well from respiratory standpoint. Breathing comfortably. That being said, when she takes a deep breath, she gets a pleuritic chest discomfort and belly pain in the left upper quadrant. She still has a little bit of discomfort with eating, but she is able to get food down and keep it down. She is passing gas. She does not report a bowel movement today. PHYSICAL EXAMINATION: VITAL SIGNS: Afebrile. Her last temperature was on the 15 of June. Pulse 106, blood pressure 124/86, respirations 19, and saturation 98%, currently on room air. GENERAL: The patient is awake and alert, in no apparent distress. LUNGS: Very good air entry on the right. There is decreased air entry at the base with dullness to percussion there. There is no prolonged expiratory phase or wheezing appreciated. HEART: Tachycardic. Regular. ABDOMEN: Soft. Distended. Bowel sounds are present. She has tenderness to palpation. Minimal rebound is present. MUSCULOSKELETAL: No cyanosis or clubbing. No pitting in the bilateral lower extremities. NEUROLOGIC: Grossly nonfocal. LABORATORY DATA: WBC 11.8, hemoglobin 9.9, and platelets 281,000. Sodium 130. Basic metabolic profile is otherwise unremarkable. Calcium 8.9, triglycerides 427. Cannabinoids are positive on the urine drug screen. ASSESSMENT: 1. Acute pancreatitis, severe. 2. Hypertriglyceridemia. DISCUSSION AND PLAN: I am going to repeat a chest x-ray. I am going to send her down for 2-view film. I am concerned based on physical exam findings that the patient has either pneumonia, or pleural effusion. I favor the latter. If this is the case, diagnostic thoracentesis may be needed to exclude the possibility of infectious issues. From my perspective, the patient is stable for transition out of the ICU to the medical unit. Job ID: [id number] MTDD
--- NOTE | 2019-06-18 13:39 | PDOC.HOSPP ---
- Subjective Encounter Date: 06/18/19 Encounter Time: 10:20 Subjective: Pt seen for followup re: acute pancreatitis. feels better. - Objective Vital Signs & Weight: Vital Signs (12 hours) Temp Pulse Pulse BP BP Pulse Ox 06/18/19 10:45 99.0 F 06/18/19 09:22 82 70 119/64 100/56 L 06/18/19 08:13 99 06/18/19 07:15 98.4 F 06/18/19 03:13 98.8 F Weight Weight 140 lb 4.8 oz Most Recent Monitor Data Heart Rate from ECG 106 NIBP 124/86 NIBP BP-Mean 98 Respiration from ECG 19 SpO2 98 I&O: 06/17/19 06/18/19 06/19/19 06:59 06:59 06:59 Intake Total 600 3575 Output Total 1750 1800 Balance -1150 1775 Result Diagrams: 06/18/19 11:50 06/18/19 11:50 Additional Labs: labs and MARs reviewed by me EKG Reviewed by me: Yes (Tele: NSR) ROS - Review of Systems Cardiovascular: denies: chest pain, palpitations, orthopnea, paroxysmal noc. dyspnea, edema, light headedness Gastrointestinal: reports: abdominal pain. denies: nausea, vomitting, diarrhea , constipation, melena, hematochezia - Medication Medications: Active Medications Generic Name Dose Route Start Last Admin Trade Name Freq PRN Reason Stop Dose Admin Acetaminophen 650 mg 06/10/19 16:37 06/16/19 23:08 Tylenol PO 650 mg Q4H PRN Administration Headache/Fever/Mild Pain (1-3) Hydrocodone Bitart/Acetaminophen 1 tab 06/17/19 10:21 06/18/19 12:38 [place] 10/325 PO 1 tab Q4H PRN Administration Moderate Pain (4-6) Gemfibrozil 600 mg 06/14/19 16:30 06/18/19 09:14 Lopid PO 600 mg BID-AC AUDIE Administration Heparin Sodium (Porcine) 5,000 units 06/11/19 21:00 06/18/19 09:15 Heparin SC 5,000 units TID AUDIE Administration Dextrose/Lactated Ringer's 1,000 mls @ 75 mls/hr 06/15/19 18:45 06/17/19 20: 02 D5 Lr IV 1,000 mls .[id number] AUDIE Administration Ondansetron HCl 4 mg 06/10/19 16:37 06/16/19 20:54 Zofran IVP 4 mg Q6H PRN Administration Nausea/Vomiting Polyethylene Glycol 17 gm 06/15/19 09:00 06/18/19 09:15 Miralax PO Not Given DAILY AUDIE Senna/Docusate Sodium 1 tab 06/14/19 21:00 06/18/19 09:14 Senokot S PO 1 tab BID AUDIE Administration Sodium Chloride 10 ml 06/13/19 09:00 06/18/19 09:15 Flush - Normal Saline IVF 10 ml Q12HR AUDIE Administration - Exam NAD Eye: anicteric sclera ENT: moist mucosa Neck: supple Heart: RRR Respiratory: CTAB Gastrointestinal: tender to palpation Musculoskeletal: no muscle wasting Psychiatric: normal affect, normal behavior Hosp A/P (1) Acute pancreatitis Code(s): K85.90 - ACUTE PANCREATITIS WITHOUT NECROSIS OR INFECTION, UNSP Status: Acute (2) Hyponatremia Code(s): E87.1 - HYPO-OSMOLALITY AND HYPONATREMIA Status: Acute (3) Marijuana use Code(s): F12.90 - CANNABIS USE, UNSPECIFIED, UNCOMPLICATED Status: Chronic (4) Hypertriglyceridemia Code(s): E78.1 - PURE HYPERGLYCERIDEMIA Status: Chronic (5) Hypocalcemia Code(s): E83.51 - HYPOCALCEMIA Status: Resolved - Plan Slowly improving. eating some of the food Hyponatremia stable. Transfer to medical floor. Continue gemfibrozil.
--- NOTE | 2019-06-18 14:04 | RAD ---
TWO VIEW CHEST: HISTORY: Shortness of breath. COMPARISON: Comparison is made to a CT of the abdomen and pelvis 06/10/2019 which had images through the lung base s. FINDINGS: There is evidence of a new left pleural effusion today opacifying the left lung base. This appears t o be new since the CT of 06/10/2019. The right lung is clear. Heart and mediastinum unremarkable. IMPRESSION: Evidence of new left pleural effusion and left basilar atelectasis. Close followup recommended. POS: C
--- NOTE | 2019-06-18 14:05 | PRG ---
DATE OF SERVICE: 06/18/2019 SUBJECTIVE: Ms. Snyder has abdominal pain when she eats and has not been wanting to eat; however, she is getting up and ambulating to the bathroom and her abdomen is less distended today. OBJECTIVE: VITAL SIGNS: Temperature 99.0, blood pressure 124/86, and pulse 106. GENERAL: She is in no acute distress. Alert and oriented x3. She appears much more comfortable today. LUNGS: Clear to auscultation bilaterally. HEART: Regular rate and rhythm without murmur. ABDOMEN: Soft and less distended. Bowel sounds are present. EXTREMITIES: No lower extremity edema. IMPRESSION: Acute recurrent severe hypertriglyceridemia-induced pancreatitis. She seems better today than yesterday. RECOMMENDATIONS: 1. Continue low-fat diet. 2. Continue gemfibrozil. Job ID: [id number]
[2019-06-18] MEDS ORDERED: diphenhydrAMINE 50 MG/ML VIAL ONE (16:12)
[2019-06-18] MEDS: Dextrose 5%-Lactated Ringers 1,000 ML IV SCH (16:22)
[2019-06-18] MEDS: Famotidine 20 MG TAB PO SCH (20:50)
[2019-06-19] MEDS: HYDROcodone/Acetaminophen 10/325 mg Tablet PO PRN ×5 (03:03→23:43)
[2019-06-19] MEDS: Dextrose 5%-Lactated Ringers 1,000 ML IV SCH ×2 (03:06→15:52)
[2019-06-19 07:36] LABS: #Eosinphils 0.1 thou/uL (0.0-0.7); #Lymphocytes 1.3 thou/uL (1.20-3.40); #Monocytes 0.6 thou/uL (0.11-0.59); #Neutrophils 9.2 thou/uL (1.40-6.50); %Eosinophils 0.9 % (0.0-10.0); %Lymphocytes 11.9 % (21.0-51.0); %Monocytes 5.3 % (0.0-10.0); %Neutrophils 81.9 % (42.0-75.0); Hemoglobin 9.6 g/dL (12.0-16.0); Mean Corpuscular HGB CONC 35.2 g/dL (32.0-36.0); Mean Corpuscular Hemoglobin 30.1 pg (27.0-31.0); Mean Corpuscular Volume 85.6 fL (78.0-98.0); Mean Platelet Volume 6.3 fL (7.4-10.4); Platelet Count 302 thou/uL (130-400); RBC Distribution Width 12.2 % (11.5-14.5); Red Blood Cell (RBC) Count 3.19 mill/uL (4.20-5.40); White Blood Cell (WBC) Count 11.3 thou/uL (4.8-10.8)
[2019-06-19 07:56] LABS: Anion Gap 14 mmol/L (10-20); BUN (Urea Nitrogen) 8 mg/dL (7.0-18.7); Calc. Creatinine Clearance 117 mL/min (70-130); Carbon Dioxide 24 mmol/L (22-29); Chloride 97 mmol/L (98-107); Estimated GFR-MDRD Greater than 90; Glucose 118 mg/dL (70-105); Phosphorus 4.8 mg/dL (2.3-4.7); Potassium 3.9 mmol/L (3.5-5.1); Sodium 131 mmol/L (136-145)
[2019-06-19] MEDS: Gemfibrozil 600 MG TAB PO SCH ×2 (08:18→15:52)
[2019-06-19] MEDS: Famotidine 20 MG TAB PO SCH ×2 (08:18→21:16)
[2019-06-19] MEDS: Heparin 5,000 UNITS/ML VIAL SC SCH ×3 (08:19→21:16)
[2019-06-19] MEDS: Polyethylene Glycol 3350 17 GM Packet PO SCH (08:19)
[2019-06-19] MEDS: Senokot S 8.6-50 MG TAB PO SCH ×2 (08:19→21:17)
[2019-06-19] MEDS: Morphine 2 MG/ML SYRINGE SLOW IVP PRN (15:50)
--- NOTE | 2019-06-19 17:59 | PRG ---
DATE OF SERVICE: 06/19/2019 SERVICE: Pulmonary medicine. INTERVAL HISTORY: The patient is doing really well from respiratory standpoint. Breathing comfortably. No complaints of chest discomfort, nausea, or vomiting. She is eating a little bit better. She continues to have a little abdominal discomfort, but not severe. Whenever she takes a deep breath, she has a horrendous pleuritic chest discomfort. PHYSICAL EXAMINATION: VITAL SIGNS: Afebrile. Pulse 91, blood pressure 113/71, respirations 18, and saturation 97% on room air. GENERAL: The patient is awake and alert, in no apparent distress. LUNGS: Very good air entry on the right. On the left, there is decreased air entry and crackles present. There is some rhonchi present. Cough is painful. ABDOMEN: Soft. Tender to palpation throughout. The distention seems to be improving a little bit. Bowel sounds are present. MUSCULOSKELETAL: No cyanosis or clubbing. No pitting edema. : No Craig. NEUROLOGIC: Grossly nonfocal. LABORATORY DATA: WBC 11.3, hemoglobin 9.6 and stable, platelets 303,000. Sodium 131 and improving. Phosphorus and magnesium are within the normal limits. Triglycerides are continued to trend downwards. Urinalysis is unremarkable. IMAGIN. Chest x-ray demonstrates pleural-parenchymal opacity in the left base. Otherwise, there is no acute disease. 2. Bedside ultrasound did not demonstrate a significant effusion on that side. I could see a very small amount of effusion. 3. Consolidated lung. ASSESSMENT: 1. Acute pancreatitis, severe. 2. Hypertriglyceridemia. 3. Left lower lobe infiltrate versus atelectasis with minimal effusion. DISCUSSION AND PLAN: I am going to do a CT scan to make certain that there is no evidence of loculated changes anywhere else in the chest. If this does not require action, the patient is likely close to being discharged home. I will give her a laboratory holiday in the morning. Certainly, if she has any significant fever from this point forward, panculture and empiric antibiotics will be initiated. I will continue to follow along for now. Job ID: [id number]
--- NOTE | 2019-06-19 18:49 | PDOC.HOSPP ---
- Subjective Encounter Date: 06/19/19 Encounter Time: 16:00 Subjective: Pt seen for followup re: acute pancreatitis. Feels better. - Objective Vital Signs & Weight: Vital Signs (12 hours) Temp Pulse Resp BP Pulse Ox 06/19/19 16:00 99.5 F 97 18 101/65 96 06/19/19 13:14 98.2 F 91 18 113/71 97 06/19/19 08:00 97 06/19/19 07:40 98.5 F 91 18 113/72 97 Weight Weight 133 lb 1 oz Most Recent Monitor Data Heart Rate from ECG 96 NIBP 111/68 NIBP BP-Mean 82 Respiration from ECG 27 SpO2 94 I&O: 06/18/19 06/19/19 06/20/19 06:59 06:59 06:59 Intake Total 3575 655 Output Total 1800 Balance 1775 655 Result Diagrams: 06/19/19 07:15 06/19/19 07:15 Additional Labs: Labs and MARs reviewed by me. ROS - Review of Systems Cardiovascular: denies: chest pain, palpitations, orthopnea, paroxysmal noc. dyspnea, edema, light headedness Gastrointestinal: denies: nausea, vomitting, abdominal pain, diarrhea, constipation, melena, hematochezia - Medication Medications: Active Medications Generic Name Dose Route Start Last Admin Trade Name Freq PRN Reason Stop Dose Admin Acetaminophen 650 mg 06/10/19 16:37 06/16/19 23:08 Tylenol PO 650 mg Q4H PRN Administration Headache/Fever/Mild Pain (1-3) Hydrocodone Bitart/Acetaminophen 1 tab 06/17/19 10:21 06/19/19 17:08 [place] 10/325 PO 1 tab Q4H PRN Administration Moderate Pain (4-6) Famotidine 20 mg 06/18/19 21:00 06/19/19 08:18 Pepcid PO 20 mg BID AUDIE Administration Gemfibrozil 600 mg 06/14/19 16:30 06/19/19 15:52 Lopid PO 600 mg BID-AC AUDIE Administration Heparin Sodium (Porcine) 5,000 units 06/11/19 21:00 06/19/19 15:52 Heparin SC 5,000 units TID AUDIE Administration Dextrose/Lactated Ringer's 1,000 mls @ 75 mls/hr 06/15/19 18:45 06/19/19 15: 52 D5 Lr IV 1,000 mls .[id number] AUDIE Administration Morphine Sulfate 2 mg 06/18/19 11:21 06/19/19 15:50 Morphine SLOW IVP 2 mg Q4H PRN Administration Pain Ondansetron HCl 4 mg 06/10/19 16:37 06/16/19 20:54 Zofran IVP 4 mg Q6H PRN Administration Nausea/Vomiting Polyethylene Glycol 17 gm 06/15/19 09:00 06/19/19 08:19 Miralax PO 17 gm DAILY AUDIE Administration Senna/Docusate Sodium 1 tab 06/14/19 21:00 06/19/19 08:19 Senokot S PO 1 tab BID AUDIE Administration Sodium Chloride 10 ml 06/13/19 09:00 06/19/19 08:20 Flush - Normal Saline IVF 10 ml Q12HR AUDIE Administration - Exam NAD Eye: anicteric sclera ENT: moist mucosa Neck: no thyromegaly, no lymphadenopathy Heart: RRR, no gallops Respiratory: CTAB Respiratory - other findings: Decreased air entry left base Gastrointestinal: soft Gastrointestinal - other findings: Mild epigastric tenderness Neurological: no weakness Psychiatric: normal affect Hosp A/P (1) Acute pancreatitis Code(s): K85.90 - ACUTE PANCREATITIS WITHOUT NECROSIS OR INFECTION, UNSP Status: Acute (2) Hyponatremia Code(s): E87.1 - HYPO-OSMOLALITY AND HYPONATREMIA Status: Acute (3) Marijuana use Code(s): F12.90 - CANNABIS USE, UNSPECIFIED, UNCOMPLICATED Status: Chronic (4) Hypertriglyceridemia Code(s): E78.1 - PURE HYPERGLYCERIDEMIA Status: Chronic (5) Hypocalcemia Code(s): E83.51 - HYPOCALCEMIA Status: Resolved - Plan Slowly improving. Tolerating diet. Did not need L thoracentesis. Continue gemfibrozil.
--- NOTE | 2019-06-19 19:06 | PRG ---
DATE OF SERVICE: 06/19/2019 SUBJECTIVE: Ms. Snyder is tolerating diet, but still small amounts. Overall, she appears to be clinically improving from a pancreatitis standpoint. OBJECTIVE: VITAL SIGNS: Temperature 98.2, pulse 91, and blood pressure 113/71. GENERAL: She is in no acute distress. Awake and alert. LUNGS: Clear to auscultation bilaterally. HEART: Regular rate and rhythm without murmur. ABDOMEN: Soft and nondistended. Bowel sounds are present. She has tenderness in the left upper quadrant focally. IMPRESSION: 1. Acute recurrent hypertriglyceridemia-induced severe pancreatitis. 2. Hypertriglyceridemia. RECOMMENDATIONS: 1. Continue low-fat diet. 2. Continue gemfibrozil. 3. Dr. Messina is evaluating possible pleural effusion/lung consolidation. 4. I will sign off for now, please call if GI can be of assistance. Job ID: [id number]
--- NOTE | 2019-06-19 20:07 | CT ---
CT OF THE CHEST AND ABDOMEN UTILIZING IV CONTRAST: 06/19/19 COMPARISON: Prior CT of the abdomen and pelvis with contrast dated 06/10/19. INDICATIONS: Concern for left lower lobe infiltrate, loculated effusion and pancreatitis. FINDINGS: CHEST: There is new air space consolidation of the left lower lobe with small left pleural effusion. There a re areas of subsegmental volume loss within the right lung base. No enlarged lymph nodes evident. ABDOMEN: There is diffuse fatty infiltration of the liver. There is an interval development of prominent perip ancreatic fluid collection suspicious for sequela of pancreatitis. There is enhancement of the pancr eas without evidence of necrosis. The fluid collections extend down into the perirenal space and into the left aspect of the retroperitoneum and pelvis. The spleen is upper limits of normal measuring 12.3 cm. The adrenal glands and kidneys are normal brooke earing. The visualized aorta appears within normal limits. The small bowel is of normal caliber. No acute osseous abnormality is evident. IMPRESSION: 1. Interval development of left basilar air space consolidation suspicious for pneumonia. There is a small left pleural effusion. 2. Interval development of a large and prominent peripancreatic fluid collections causing some m ass effect on the adjacent stomach and extending down the left retroperitoneum into the pelvis. No de finite drainable fluid collection is evident. There is no evidence of pancreatic necrosis. 3. Fatty liver. POS: BH
[2019-06-20] MEDS: Dextrose 5%-Lactated Ringers 1,000 ML IV SCH ×2 (04:51→16:21)
[2019-06-20] MEDS: HYDROcodone/Acetaminophen 10/325 mg Tablet PO PRN ×4 (04:51→20:27)
[2019-06-20] MEDS: Senokot S 8.6-50 MG TAB PO SCH ×2 (08:10→20:28)
[2019-06-20] MEDS: Famotidine 20 MG TAB PO SCH ×2 (08:10→20:28)
[2019-06-20] MEDS: Heparin 5,000 UNITS/ML VIAL SC SCH ×3 (08:10→20:28)
[2019-06-20] MEDS: Gemfibrozil 600 MG TAB PO SCH ×2 (08:10→16:01)
[2019-06-20] MEDS: Polyethylene Glycol 3350 17 GM Packet PO SCH (08:11)
[2019-06-20] MEDS: Morphine 2 MG/ML SYRINGE SLOW IVP PRN (08:15)
[2019-06-20] MEDS ORDERED: predniSONE 20 MG TAB PO SCH (09:30)
[2019-06-20] MEDS: Amoxicillin/Potassium Clav 875 MG TAB PO SCH ×2 (10:24→20:27)
--- NOTE | 2019-06-20 12:27 | CT ---
CT OF THE CHEST AND ABDOMEN UTILIZING IV CONTRAST: 06/19/19 COMPARISON: Prior CT of the abdomen and pelvis with contrast dated 06/10/19. INDICATIONS: Concern for left lower lobe infiltrate, loculated effusion and pancreatitis. FINDINGS: CHEST: There is new air space consolidation of the left lower lobe with small left pleural effusion. There a re areas of subsegmental volume loss within the right lung base. No enlarged lymph nodes evident. ABDOMEN: There is diffuse fatty infiltration of the liver. There is an interval development of prominent perip ancreatic fluid collection suspicious for sequela of pancreatitis. There is enhancement of the pancr eas without evidence of necrosis. The fluid collections extend down into the perirenal space and into the left aspect of the retroperitoneum and pelvis. The spleen is upper limits of normal measuring 12.3 cm. The adrenal glands and kidneys are normal brooke earing. The visualized aorta appears within normal limits. The small bowel is of normal caliber. No acute osseous abnormality is evident. IMPRESSION: 1. Interval development of left basilar air space consolidation suspicious for pneumonia. Ther e is a small left pleural effusion. 2. Interval development of prominent peripancreatic fluid collections causing some mass effect on the adjacent stomach and extending down the left retroperitoneum into the pelvis. No definite adriana inable fluid collection is evident. There is no evidence of pancreatic necrosis. 3. Fatty liver.
--- NOTE | 2019-06-20 13:49 | PDOC.HOSPP ---
- Subjective Encounter Date: 06/20/19 Encounter Time: 08:25 Subjective: has left lower chest pain on breathing, left shoulder pain no nausea is tolerating liq well, ambulating in room well - Objective Vital Signs & Weight: Vital Signs (12 hours) Temp Pulse Resp BP Pulse Ox 06/20/19 12:15 97.5 F L 89 16 101/65 96 06/20/19 08:00 98.6 F 81 18 95/58 L 96 06/20/19 04:31 98.8 F 88 16 100/64 96 Weight Weight 140 lb 6 oz Most Recent Monitor Data Heart Rate from ECG 96 NIBP 111/68 NIBP BP-Mean 82 Respiration from ECG 27 SpO2 94 I&O: 06/19/19 06/20/19 06/21/19 06:59 06:59 06:59 Intake Total 655 1225 Output Total 1 Balance 655 1224 Result Diagrams: 06/19/19 07:15 06/19/19 07:15 Additional Labs: Accuchecks 06/19/19 20:34 POC Glucose 95 ROS - Medication Medications: Active Medications Generic Name Dose Route Start Last Admin Trade Name Freq PRN Reason Stop Dose Admin Acetaminophen 650 mg 06/10/19 16:37 06/16/19 23:08 Tylenol PO 650 mg Q4H PRN Administration Headache/Fever/Mild Pain (1-3) Hydrocodone Bitart/Acetaminophen 1 tab 06/17/19 10:21 06/20/19 10:24 [place] 10/325 PO 1 tab Q4H PRN Administration Moderate Pain (4-6) Amoxicillin/Clavulanate Potassium 875 mg 06/20/19 09:00 06/20/19 10:24 Augmentin PO 06/25/19 09:01 875 mg Q12HR AUDIE Administration Famotidine 20 mg 06/18/19 21:00 06/20/19 08:10 Pepcid PO 20 mg BID AUDIE Administration Gemfibrozil 600 mg 06/14/19 16:30 06/20/19 08:10 Lopid PO 600 mg BID-AC AUDIE Administration Heparin Sodium (Porcine) 5,000 units 06/11/19 21:00 06/20/19 08:10 Heparin SC 5,000 units TID AUDIE Administration Dextrose/Lactated Ringer's 1,000 mls @ 75 mls/hr 06/15/19 18:45 06/20/19 04: 51 D5 Lr IV 1,000 mls .[id number] AUDIE Administration Morphine Sulfate 2 mg 06/18/19 11:21 06/20/19 08:15 Morphine SLOW IVP 2 mg Q4H PRN Administration Pain Ondansetron HCl 4 mg 06/10/19 16:37 06/16/19 20:54 Zofran IVP 4 mg Q6H PRN Administration Nausea/Vomiting Polyethylene Glycol 17 gm 06/15/19 09:00 06/20/19 08:11 Miralax PO 17 gm DAILY AUDIE Administration Senna/Docusate Sodium 1 tab 06/14/19 21:00 06/20/19 08:10 Senokot S PO 1 tab BID AUDIE Administration Sodium Chloride 10 ml 06/13/19 09:00 06/20/19 08:11 Flush - Normal Saline IVF 10 ml Q12HR AUDIE Administration - Exam NAD, awake alert Eye: PERRL, anicteric sclera ENT: normocephalic atraumatic, no oropharyngeal lesions, moist mucosa Neck: supple, no JVD Heart: RRR, no murmur Respiratory: no wheezes, no rales Gastrointestinal: soft, non-distended, normal bowel sounds Gastrointestinal - other findings: tenderness in epigastric area Extremities: no cyanosis, no edema Neurological: CN's grossly intact, no focal deficits Psychiatric: normal affect, A&O x 3 Hosp A/P (1) Acute pancreatitis Code(s): K85.90 - ACUTE PANCREATITIS WITHOUT NECROSIS OR INFECTION, UNSP Status: Acute Qualifiers: Pancreatitis type: other Plan: hypertriglyceridemia induced (2) Hyponatremia Code(s): E87.1 - HYPO-OSMOLALITY AND HYPONATREMIA Status: Resolved (3) Hypertriglyceridemia Code(s): E78.1 - PURE HYPERGLYCERIDEMIA Status: Chronic (4) Marijuana use Code(s): F12.90 - CANNABIS USE, UNSPECIFIED, UNCOMPLICATED Status: Chronic (5) Hypocalcemia Code(s): E83.51 - HYPOCALCEMIA Status: Resolved - Plan hemostable on iv fluids, lopid, miralax and morphine prn Augmentin and steroids for pleuritic pain
--- NOTE | 2019-06-20 14:45 | PRG ---
DATE OF SERVICE: 06/20/2019 SERVICE: Pulmonary Medicine. INTERVAL HISTORY: The patient is doing wonderful from respiratory standpoint. She had a CT scan yesterday, so we could further identify what was going on inside of her chest. She continues to have severe pleuritic chest discomfort. Outside of that, she is essentially asymptomatic. She has a poor p.o., but she is keeping stuff down. She is having bowel movements and passing gas. PHYSICAL EXAMINATION: VITAL SIGNS: Afebrile, pulse 81, blood pressure 101/65, respirations 16, saturation 96% on room air. GENERAL: The patient is awake and alert, in no apparent distress. LUNGS: Decent air entry. There is no prolonged expiratory phase or wheezing present. HEART: Normal rate and regular. ABDOMEN: Soft. It is tender to palpation, but this continues to improve. Minimal rebound. No guarding. Bowel sounds are present. MUSCULOSKELETAL: No cyanosis or clubbing. No pitting in the bilateral lower extremities. NEUROLOGIC: Grossly nonfocal. IMAGING STUDIES: CT of the chest demonstrates dense atelectasis of the left lower lobe. The 4 of the 5 segments of the left lower lobe were completely compressed down into a very small region. As such, I favor this to represent atelectasis. That being said, I cannot completely exclude the possibility of a possible pneumonia. There is a very small rim of pleural effusion present. There is also some inflammation/swelling around the pancreas, but no obvious pseudocyst, or necrosis of the pancreas has been identified. ASSESSMENT: 1. Acute pancreatitis, severe. 2. Hypertriglyceridemia. 3. Dense atelectasis of the left lower lobe secondary to pleuritic chest pain, and splinting. 4. Referred pain to the shoulder from diaphragmatic inflammation. 5. Pneumonia, possible. DISCUSSION AND PLAN: The patient's white blood cell count, heart rate, and respiratory rate have all improved. As such, I really do not think we are dealing with a pneumonia. I believe this to represent atelectasis secondary to splinting because of her pleuritic chest discomfort. I believe that the inflammation of the diaphragm is also giving her referred pain to the left shoulder. As such, I will give her a very brief course of steroids and put her on a 5-day course of Augmentin just in case there is infectious etiology brewing. That being said, I do not think that is the case. At this point, she has no further requirements for inpatient Pulmonary or Critical Care opinion, and I will sign off. She will need to be on gemfibrozil for ever and follow up in the outpatient setting with a primary care physician to make certain that her triglycerides are under good control. Job ID: [id number]
[2019-06-20 15:16] VITALS: BMI 23.9
[2019-06-21] MEDS: HYDROcodone/Acetaminophen 10/325 mg Tablet PO PRN ×2 (01:20→08:28)
[2019-06-21] MEDS: Dextrose 5%-Lactated Ringers 1,000 ML IV SCH ×2 (03:05→13:49)
[2019-06-21] MEDS ORDERED: predniSONE 20 MG TAB PO SCH (08:00)
[2019-06-21] MEDS: Senokot S 8.6-50 MG TAB PO SCH ×2 (08:27→20:18)
[2019-06-21] MEDS: Polyethylene Glycol 3350 17 GM Packet PO SCH ×2 (08:27→08:28)
[2019-06-21] MEDS: Amoxicillin/Potassium Clav 875 MG TAB PO SCH ×2 (08:27→20:17)
[2019-06-21] MEDS: Famotidine 20 MG TAB PO SCH ×2 (08:27→20:18)
[2019-06-21] MEDS: Heparin 5,000 UNITS/ML VIAL SC SCH ×2 (08:28→14:33)
[2019-06-21] MEDS: Gemfibrozil 600 MG TAB PO SCH ×2 (08:28→16:38)
--- NOTE | 2019-06-21 13:51 | DIS ---
DATE OF ADMISSION: 06/10/2019 DATE OF DISCHARGE: 06/21/2019 DISCHARGE DISPOSITION: Home. PRIMARY DISCHARGE DIAGNOSES: 1. Acute severe pancreatitis secondary to hypertriglyceridemia resolving. 2. Hyponatremia, resolved. 3. Marijuana abuse. 4. Hypocalcemia due to pancreatitis, resolved. PROCEDURES DONE DURING HOSPITALIZATION: Abdominal and pelvic CAT scan done on the day of admission showed findings of acute pancreatitis. CT brain showed no acute intracranial process. CT chest and abdomen with IV contrast done on 06/19/2019 showed left basilar airspace consolidation suspicious for pneumonia versus atelectasis, small left pleural effusion. There was development of large and prominent peripancreatic fluid collections causing some mass effect on the adjacent stomach and extending down the left retroperitoneum into the pelvis. No definite drainable fluid collection is evident. No evidence of pancreatic necrosis or fatty liver. Hemoglobin and hematocrit on the , 9.6 and 27, platelet count is 302 , MCV is 85, BUN 8, creatinine 0.6 on the , triglycerides were 392 on the with admitting levels of 3335. Lipase level was 3575 on the day of admission with numbers of 156 on the . Calcium levels had dropped down to 4.8 on the with 9 mg/dL on the . Albumin was 2.7 on the . Urine drug screen was positive for marijuana. Serum test was negative on the . DISCHARGE MEDICATIONS: 1. Lopid 600 mg p.o. twice daily. 2. Augmentin 875 mg p.o. twice daily for another 4 days. ALLERGIES: NO KNOWN DRUG ALLERGIES. INPATIENT CONSULT: 1. Dr. Somoth Patiño for Gastroenterology. 2. Dr. Messina for Pulmonary Critical Care. DISCHARGE PLAN: The patient to follow up with her primary care physician in 1 week. BRIEF COURSE DURING HOSPITALIZATION: The patient initially got admitted on the with complaints of abdominal pain. Her initial workup revealed acute pancreatitis. The patient also had severe hypertriglyceridemia. She was essentially admitted to ICU for severe pancreatitis secondary to hypertriglyceridemia. She has had slow and steady recovery. The patient's triglycerides have come down to the 300s. She has placed on Lopid. The patient has pleuritic chest pain and left upper shoulder pain due to diaphragmatic irritation from pancreatitis and fluid collections. She will be given incentive spirometer at the time of discharge to use at home. She was also given a dose of steroids for pleuritic chest pain. She needs to continue Augmentin for another 4 days. The patient was counseled with regard to fat free diet and to take Lopid for the rest of her life for hypertriglyceridemia. She was strongly counseled to follow up with primary care physician in 1 week. She was also counseled to eat and drink adequately. She needs to come to the emergency room if she were to develop fever or worsening abdominal pain. Please note, I have seen and examined the patient at the time of discharge. Job ID: [id number] [facility]
[2019-06-21] MEDS: Acetaminophen 325 MG TAB PO PRN (17:49)
[2019-06-21 19:18] VITALS: BP 105/69; TEMP 98.3
== END 2019-06-21 20:30 | disposition home or self-care (01) | DRG 439 ==
LOC: ERS 13:23 → T4-B 17:20 → CCU 06-11 14:44 → IMCU/EMU 06-15 12:35 → T4-B 06-18 22:53
PROVIDERS: ADMIT Internal Medicine; ATTEND Internal Medicine
DX: K85.80 Other acute pancreatitis without necrosis or infection (principal); E87.1 Hypo-osmolality and hyponatremia; F10.10 Alcohol abuse, uncomplicated; E78.5 Hyperlipidemia, unspecified; E83.52 Hypercalcemia; E78.1 Pure hyperglyceridemia; F12.10 Cannabis abuse, uncomplicated; Z90.49 Acquired absence of other specified parts of digestive tract; Z79.4 Long term (current) use of insulin
CPT/HCPCS: 36415; 36416; 70450; 71046; 71260; 74160; 74177; 80048; 80053; 80061; 80306; 81003; 82550; 83690; 83735; 84100; 84478; 84484; 84703; 85014; 85018; 85025; 96361; 96374; 96375; 96376; C9113; J0131; J1170; J1200; J1644; J1815; J1885; J1940; J2270; J2405; J3010; J3475; J3480; J3490; J7050; J7121; J7512; Q9966; S0028

== ENCOUNTER 2019-07-19 00:02 | Emergency (ER) | payer SELFPAY ==
[2019-07-19] MEDS ORDERED: Acetaminophen 500 MG TAB ONE (00:29)
[2019-07-19 00:36] LABS: Pregnancy Test - Urine (BHCG) Negative (Negative); Pregu Control Background? CLEAR/WHITE (CLR/WHITE); Pregu Control Bar Appear? YES (CONTROL BAR); Specific Gravity 1.034 (1.002-1.036)
[2019-07-19 00:38] LABS: Bacteria/HPF None Seen HPF (None Seen); Bilirubin Negative (Negative); Blood, Urine 2+ (Negative); Clarity Turbid (Clear); Glucose, Urine (Dipstick) Normal (Negative); Leukocyte Negative Leu/uL (Negative); Nitrite Negative (Negative); Protein, Urine (Dipstick) 20 mg/dL (Neg-Trace); RBC/HPF Greater than 50 HPF (0-3); Urobilinogen 3 mg/dL (Less than 2); WBC/HPF 0-3 HPF (0-3)
[2019-07-19 21:04] LABS: Chlamydia by PCR Not Detected (NotDetected); GC by PCR Not Detected (NotDetected)
== END 2019-07-19 01:28 | disposition home or self-care (01) ==
LOC: ERS 00:02
DX: N93.9 Abnormal uterine and vaginal bleeding, unspecified (principal)
CPT/HCPCS: 81003; 81015; 81025; 87480; 87491; 87510; 87591; 87660; 99284

== ENCOUNTER 2019-08-07 16:01 | Inpatient (IN) | payer SELFPAY ==
[~2019-08-07 16:01] MED LIST: ISOVUE-370 76%-LOCM 1 ML ONE
[2019-08-07 16:50] LABS: Bilirubin Negative (Negative); Blood, Urine Negative (Negative); Clarity Clear (Clear); Glucose, Urine (Dipstick) Normal (Negative); Leukocyte Negative Leu/uL (Negative); Nitrite Negative (Negative); Protein, Urine (Dipstick) Negative (Neg-Trace)
[2019-08-07 16:55] LABS: Pregnancy Test - Urine (BHCG) Negative (Negative); Specific Gravity 1.024 (1.002-1.036)
[2019-08-07 16:56] LABS: Pregu Control Background? CLEAR/WHITE (CLR/WHITE); Pregu Control Bar Appear? YES (CONTROL BAR)
[2019-08-07] MEDS ORDERED: Ondansetron PF 4 MG/2 ML Vial ONE (17:34)
[2019-08-07] MEDS ORDERED: HYDROmorphone 0.5 MG/0.5 ML SYRINGE ONE (17:37)
[2019-08-07 17:42] LABS: #Basophils 0.1 thou/uL (0.0-0.2); #Eosinphils 0.2 thou/uL (0.0-0.7); #Lymphocytes 1.9 thou/uL (1.20-3.40); #Monocytes 0.4 thou/uL (0.11-0.59); #Neutrophils 3.2 thou/uL (1.40-6.50); %Basophils 0.9 % (0.0-1.0); %Eosinophils 3.3 % (0.0-10.0); %Lymphocytes 33.7 % (21.0-51.0); %Monocytes 6.9 % (0.0-10.0); %Neutrophils 55.3 % (42.0-75.0); Hemoglobin 13.6 g/dL (12.0-16.0); Mean Corpuscular HGB CONC 37.5 g/dL (32.0-36.0); Mean Corpuscular Hemoglobin 31.8 pg (27.0-31.0); Mean Platelet Volume 9.2 fL (7.4-10.4); Platelet Count 156 thou/uL (130-400); Red Blood Cell (RBC) Count 4.29 mill/uL (4.20-5.40); White Blood Cell (WBC) Count 5.7 thou/uL (4.8-10.8)
[2019-08-07] MEDS ORDERED: Acetaminophen 1,000 MG in Premix Bag 1 BAG IVPB ONE (17:45)
--- NOTE | 2019-08-07 17:59 | CT ---
CT Abdomen Pelvis W Con History: Pancreatitis Comparison: CT abdomen and pelvis June 10, 2019 Findings: Lung bases are clear. No pericardial effusion. Diffuse hepatic steatosis. Lobular collection of fluid along the left gastrosplenic ligament with tet aramis, pseudocyst formation, measuring 6.5 cm in AP dimension x transverse dimension of 7 cm and craniocaudal dimension of 8 cm. No evidence of pancreatic necrosis. Aortoiliac contour is normal. Right adnexal hemorrhagic cyst. No hydronephrosis. There is fluid tracking throughout the anterior pararenal space extending in the r etroperitoneal along the left ureter. No acute osseous abnormality. There appears be a surgical clip along the serosa of the second portion duodenum. Impression: New pancreatic pseudocyst along the gastrosplenic ligament as described which is lobular with multiple small interconnecting segments of the pseudocyst. There is also inflammatory fluid in the perirenal space along the left ureter. The pancreatic fluid collection is not yet internally cyst ic. Close follow-up recommended.
[2019-08-07 18:18] LABS: ALT (SGPT) 12 U/L (8-55); AST (SGOT) 16 U/L (5-34); Albumin 4.7 g/dL (3.5-5.0); Alkaline Phosphatase 63 U/L (40-110); Anion Gap 15 mmol/L (10-20); BUN (Urea Nitrogen) 16 mg/dL (7.0-18.7); Bilirubin, Total 0.4 mg/dL (0.2-1.2); Calc. Creatinine Clearance 0 mL/min (70-130); Calcium 9.1 mg/dL (7.8-10.44); Carbon Dioxide 20 mmol/L (22-29); Chloride 104 mmol/L (98-107); Estimated GFR-MDRD Greater than 90; Globulin 5.4 g/dL (2.4-3.5); Glucose 83 mg/dL (70-105); Lipase 48 U/L (8-78); Potassium 3.9 mmol/L (3.5-5.1); Protein, Total 10.1 g/dL (6.0-8.3); Sodium 135 mmol/L (136-145)
[2019-08-07] MEDS ORDERED: Fenofibrate Nanocrystallized 145 MG TAB PO SCH (20:30)
[2019-08-07] MEDS ORDERED: Insulin Regular 100 units/100 ml in NS IVPB SCH (20:30)
[2019-08-07] MEDS: Dextrose 5 % And 0.9 % NaCl 1,000 ML IV SCH (21:11)
[2019-08-07] MEDS ORDERED: Dextrose 50% Abboject 50 ML SYRINGE SLOW IVP PRN (21:14)
[2019-08-07] MEDS ORDERED: Dextrose 5% in Water 1,000 ML IV PRN (21:14)
[2019-08-07] MEDS ORDERED: Ondansetron PF 4 MG/2 ML Vial IVP PRN (21:24)
[2019-08-07] MEDS ORDERED: Ondansetron ODT 4 MG TAB PO PRN (21:24)
[2019-08-07] MEDS: Acetaminophen 325 MG TAB PO PRN (21:55)
[2019-08-07 22:32] VITALS: BMI 22.0
[2019-08-07 23:24] LABS: Lactic Acid 0.8 mmol/L (0.5-2.2)
[2019-08-07] MEDS: Morphine 2 MG/ML SYRINGE SLOW IVP PRN (23:35)
[2019-08-07] MEDS ORDERED: Ketorolac Tromethamine 30 MG/ML VIAL IVP SCH (23:59)
[2019-08-08 00:33] LABS: Hemoglobin 11.4 g/dL (12.0-16.0)
[2019-08-08] MEDS: Dextrose 5 % And 0.9 % NaCl 1,000 ML IV SCH ×4 (01:49→20:11)
[2019-08-08 04:19] LABS: #Eosinphils 0.2 thou/uL (0.0-0.7); #Lymphocytes 2.1 thou/uL (1.20-3.40); #Monocytes 0.3 thou/uL (0.11-0.59); #Neutrophils 2.1 thou/uL (1.40-6.50); %Basophils 0.7 % (0.0-1.0); %Lymphocytes 43.8 % (21.0-51.0); %Monocytes 6.2 % (0.0-10.0); %Neutrophils 45.2 % (42.0-75.0); Hemoglobin 11.2 g/dL (12.0-16.0); Mean Corpuscular HGB CONC 36.2 g/dL (32.0-36.0); Mean Corpuscular Hemoglobin 31.1 pg (27.0-31.0); Mean Corpuscular Volume 85.9 fL (78.0-98.0); Mean Platelet Volume 8.4 fL (7.4-10.4); Platelet Count 127 thou/uL (130-400); RBC Distribution Width 12.8 % (11.5-14.5); Red Blood Cell (RBC) Count 3.62 mill/uL (4.20-5.40); White Blood Cell (WBC) Count 4.7 thou/uL (4.8-10.8)
[2019-08-08 04:41] LABS: Anion Gap 15 mmol/L (10-20); BUN (Urea Nitrogen) 6 mg/dL (7.0-18.7); Calc. Creatinine Clearance 126 mL/min (70-130); Carbon Dioxide 18 mmol/L (22-29); Chloride 109 mmol/L (98-107); Estimated GFR-MDRD Greater than 90; Glucose 86 mg/dL (70-105); Potassium 3.7 mmol/L (3.5-5.1); Sodium 138 mmol/L (136-145)
--- NOTE | 2019-08-08 05:36 | HP ---
PRIMARY CARE DOCTOR: The patient has no PCP. CODE STATUS: Full code. TIME OF EVALUATION: 10 p.m. CHIEF COMPLAINT: Abdominal pain. HISTORY OF PRESENT ILLNESS: This is a female patient with past medical history of alcohol abuse and also hypertriglyceridemia in the past with recurrent episode of pancreatitis since she was in her 20s. The patient came to the hospital after having severe gradually worsening abdominal pain, that was diffuse, but it was starting in the epigastric area and was radiating to the back with some difficulty breathing due to the pain. The patient also needed opioid medication for optimal control. CAT scan showed pseudocyst with acute on chronic pancreatic changes. Also, it was found that her triglyceride was in the 2000 range. Symptoms were severe. Pain started a few days ago and is gradually getting worse. REVIEW OF SYSTEMS: CONSTITUTIONAL: No fever. No chills or generalized weakness. RESPIRATORY: No cough, sputum production or shortness of breath. CARDIOVASCULAR: No chest pain or palpitations. GASTROINTESTINAL: The patient has diffuse abdominal pain, that radiates to the back as described in HPI. SALVAGE CLERK: No dizziness, headache or feeling lightheaded. GENITOURINARY: No burning urination. EXTREMITIES: No leg swelling. All other systems were reviewed and negative except for the findings as mentioned above. PAST MEDICAL HISTORY: As mentioned in the HPI. FAMILY HISTORY: Reviewed, noncontributory for current presentation. PAST SURGICAL HISTORY: History of appendectomy and ovarian cyst. PSYCHIATRIC HISTORY: No previous psych history. SOCIAL HISTORY: The patient drinks socially. Denies any drug use. No smoking history. KNOWN ALLERGIES: No known drug allergies. REPORTED MEDICATION: The patient was on gemfibrozil. PHYSICAL EXAMINATION: VITAL SIGNS: On presentation, blood pressure 116/68, with heart rate 83, respiratory rate was 26, temperature 97.9, and oxygen saturation 99% on room air. GENERAL APPEARANCE: The patient is alert, oriented, in no acute distress. HEENT: Eyes, normal conjunctivae. Moist oral mucosa. Anicteric. No JVD. RESPIRATORY: Bilateral air entry. No rales. No wheezes. Symmetric expansion. CARDIOVASCULAR: Normal rate. Regular rhythm. No murmurs. No gallops. No edema. ABDOMEN: Soft. Tenderness is diffuse, radiating to the back. MUSCULOSKELETAL: Baseline range of motion and strength. SKIN: Warm and intact. No pallor. No rash. No redness. Capillary refill seems to be intact. NEUROLOGIC: No evidence of any new focal weakness. Cranial nerves seems to be intact. PSYCHIATRIC: The patient is in good mood. No anxiety. Optimal judgment. RADIOLOGICAL DATA: New pancreatic pseudocyst and acute pancreatitis. LABORATORY DATA: Labs are reviewed. The patient's white count is 5.7, hemoglobin 13.6, and platelet count 156. Repeat hemoglobin was 11.4. Sodium 135, potassium 3.9, carbon dioxide 20, chloride 104, anion gap 15, BUN 16, and creatinine 0.67. GFR greater than 90. Lactic acid 6.7, the second one 0.8. Calcium 9.1. Total bilirubin 0.4, AST 16, ALT 12, and alk phos 63. Troponin was negative. Serum total protein 10.1. Albumin 4.7, globulin 5.4, triglycerides initially at 2200, the second one 1898. Amylase 48 and lipase 48. Urine was done, was negative. ASSESSMENT AND PLAN: The patient will be placed in the hospital with following medical problems. 1. Severe pancreatitis. The patient has acute pancreatitis with change in the CAT scan and also severe abdominal pain. Lipase might not be high since the patient has been suffering this for years, so it seems to be acute on chronic. The etiology most likely is hypertriglyceridemia. We will place the patient on insulin drip and then treat with fenofibrate aiming for triglycerides to be below 500. Detailed counseling has been given to the patient regarding her medical problem. 2. Hyponatremia, this is mild. Sodium 135. We will monitor. We will treat accordingly. 3. Lactic acidosis, on presentation 6.7, that was corrected, likely due to underlying pancreatitis. We will treat underlying condition. 4. Hypercholesterolemia. The patient may need to be also on statins for that reason ___muscle toxicity is in the low risk. 5. Deep venous thrombosis prophylaxis. 6. Severe abdominal pain, being treated with opioid medication for optimal control. This places the patient at risk of complication from treatment. Job ID: [id number] [facility]
[2019-08-08] MEDS ORDERED: FLU VACC QS2019-20(6MOS UP)/PF 60 MCG/0.5 ML SYRINGE IM ONE (09:00)
[2019-08-08] MEDS ORDERED: Pantoprazole 40 MG VIAL IVP SCH (09:00)
[2019-08-08] MEDS ORDERED: Enoxaparin Sodium 40 MG/0.4 ML SYRINGE SC SCH (09:00)
[2019-08-08] MEDS: Morphine 2 MG/ML SYRINGE SLOW IVP PRN (09:03)
[2019-08-08] MEDS: Fenofibrate Nanocrystallized 145 MG TAB PO SCH (09:03)
--- NOTE | 2019-08-08 10:01 | PRG ---
DATE OF SERVICE: 08/08/2019 SUBJECTIVE: The patient says she is doing better. The pain medicines are helping with her pain. OBJECTIVE: VITAL SIGNS: Temperature 98, O2 saturation 98% on room air, blood pressure 117/66, pulse 55. GENERAL APPEARANCE: Age-appropriate female, in no distress. She is awake and alert. HEART: Regular rate and rhythm without murmurs, gallops, or rubs. LUNGS: Clear to auscultation bilaterally with good chest wall expansion and air exchange. ABDOMEN: Soft and nondistended. She is mildly tender across the upper abdomen. Bowel sounds are present. EXTREMITIES: No cyanosis, clubbing, or edema. LABORATORY DATA: White count 4.7, hemoglobin 11.2, platelets 127. Sodium 138, potassium 3.7, chloride 109, CO2 is 18, BUN 6, creatinine 0.59. Triglycerides 1350. IMPRESSION AND PLAN: 1. Pancreatitis. The patient has a history of recurrent pancreatitis, apparently originally started by alcohol, although she does have severe hypertriglyceridemia. We will continue to treat with bowel rest, IV fluids, pain medications in addition trying to treat the hypertriglyceridemia. 2. Severe hypertriglyceridemia in a patient with no underlying diabetes mellitus. She is on an insulin drip. Discussed with the patient's nurses. There is no specific protocol at this point, continuing to balance her blood sugars with the D5 infusion, which is currently at 200 mL an hour along with the insulin drip. 3. We will add proton-pump inhibitor and Lovenox for deep venous thrombosis prophylaxis. Job ID: [id number]
[2019-08-08] MEDS ORDERED: Fish Oil 1,000 MG CAP PO SCH (12:15)
[2019-08-08] MEDS ORDERED: Niacin 500 MG TAB PO SCH ×2 (12:15→21:00)
[2019-08-08] MEDS: Acetaminophen 325 MG TAB PO PRN (13:23)
--- NOTE | 2019-08-08 13:41 | CON ---
DATE OF CONSULTATION: 08/08/2019 SERVICE: Pulmonary Medicine. REASON FOR CONSULTATION: IMCU patient. HISTORY OF PRESENT ILLNESS: The patient is a 34-year-old female with past medical history significant for hypertriglyceridemia, resulting in a recent episode of pancreatitis. She was returning to her usual state of health when she started having increasing abdominal discomfort once again. She presented to the Emergency Department and was found to have elevated triglyceride levels. As such, she was put on an insulin drip and tucked into the ICU. Overnight, her triglyceride level has come down. Her lipase was never elevated on this occasion. She currently denies any fevers or chills. She does have nausea, does not have much of an appetite. She indicates that her abdominal discomfort is a little bit better today. PAST MEDICAL HISTORY: 1. Hypertriglyceridemia. 2. History of severe pancreatitis secondary to hypertriglyceridemia. PAST SURGICAL HISTORY: 1. Appendectomy. 2. Cystectomy from an ovary. SOCIAL HISTORY: Negative for significant alcohol, tobacco, or illicit drug use. She does use alcohol socially. She has no exposure to chemicals, dust, asbestos , or tuberculosis. FAMILY HISTORY: Noncontributory. ALLERGIES: NO KNOWN DRUG ALLERGIES. MEDICATIONS: The patient's inpatient medications were reviewed. No specific updates were made at this time. REVIEW OF SYSTEMS: General, head, ears, eyes, nose, throat, cardiovascular, respiratory, GI, , musculoskeletal, neurologic, and skin are negative except as mentioned is the HPI. PHYSICAL EXAMINATION: VITAL SIGNS: Afebrile, pulse 55, blood pressure 117/66, respirations 26, and saturation 100%, currently on room air. GENERAL: The patient is awake and alert, in no apparent distress. LUNGS: Very good air entry. No prolonged expiratory phase or wheezing. Dependent crackles are minimal. HEART: Normal rate. Regular. ABDOMEN: Soft. Minimal tenderness to palpation. No rebound or guarding is present. Bowel sounds are active. : No Craig. NEUROLOGIC: Grossly nonfocal. LABORATORY DATA: WBC 4.7, hemoglobin 12.2, and platelets 127,000. Creatinine 0.59. Basic metabolic profile is otherwise unremarkable. Triglyceride level is 1350. Lactate was originally 6.7, but has improved to 0.8. Liver function studies were unremarkable. Lipase 48. Urinalysis is unremarkable. IMAGING: CT of the abdomen and pelvis demonstrates development of a new pseudocyst along the gastrosplenic ligament. There is some inflammatory fluid in the perirenal space along the left ureter. ASSESSMENT: 1. Hypertriglyceridemia. 2. History of severe pancreatitis secondary to hypertriglyceridemia. 3. Pseudocyst formation. 4. Abdominal pain, improving. DISCUSSION AND PLAN: We will continue IV fluids. I will drop the rate. I really do not think that she has an acute episode of pancreatitis here. We will drop her IV fluids to maintenance dose. She has failed gemfibrozil, if she was truly taking it. As such, we may need to escalate therapy in the outpatient setting. From my perspective , she is stable for transition out of the IMCU to the medical unit. Pulmonary/ Critical Care will continue to follow along for the time being. 70 minutes have been devoted to this patient in various activities. I personally reviewed all imaging studies and laboratory data noted within this document. For fifty percent of this time, I was interacting with the patient at the bedside or coordinating care with the care team. For the remainder of the time I was immediately available to the patient in the hospital unit. Job ID: [id number] MTDD
[2019-08-08] MEDS ORDERED: Aspirin 325 MG TAB ONE (14:03)
[2019-08-08] MEDS ORDERED: Aspirin 325 MG TAB PO SCH (14:15)
[2019-08-08] MEDS: diphenhydrAMINE 50 MG/ML VIAL ONE ×2 (14:28→14:29)
[2019-08-08] MEDS ORDERED: diphenhydrAMINE 50 MG/ML VIAL IVP SCH (14:30)
[2019-08-08] MEDS: Heparin 5,000 UNITS/ML VIAL SC SCH ×2 (17:03→20:09)
--- NOTE | 2019-08-08 20:05 | CON ---
DATE OF CONSULTATION: 08/08/2019 REASON FOR CONSULTATION: Abdominal pain, history of pancreatitis. HISTORY OF PRESENT ILLNESS: Ms. Snyder is a 34-year-old female, who originally from [place], who was last admitted to this facility 2 months ago with acute pancreatitis secondary to hypertriglyceridemia. She also has a history of alcohol consumption. Her current symptoms began 5 days ago when she began having increasing abdominal pain localizing to the upper part in the epigastrium. She did have some nausea, but without much vomiting. The pain is similar to her previous pancreatitis, which prompted her hospital visit. She denies any change in bowel function. She denies any fever or chills. On this admission, a CT was performed showed a viable pancreas with organizing fluid collection suggesting pseudocyst formation, but without any other significant severe inflammatory changes. Her serum lipase is in the 40s. She reports that her pain has been much improved since yesterday. In her previous admission, she was hospitalized for 10 days admission in the ICU. Her CT at the time of discharge did show large amount of fluid collection around the pancreas. There was no evidence of pancreatic necrosis at that time. It is unclear whether she has been taking her Lopid medications since discharge. The patient reports having had pancreatitis in the past in [place]. Otherwise, no medical illness. Status post appendectomy and ovarian cyst surgery. ALLERGIES: NONE. CURRENT MEDICATIONS: Include; 1. Tricor 145 mg daily. 2. Fish oil. 3. Niacin 500 mg at bedtime. 4. Other p.r.n. medication such as ondansetron. 5. IV pain medication has been discontinued. SOCIAL HISTORY: The patient denies any active alcohol consumption to me. She does not smoke. FAMILY HISTORY: Negative for any GI problem, liver disease, or GI malignancy. She has no known family history of pancreatitis. REVIEW OF SYSTEMS: 10-point review of systems is limited because of a communication barrier. At best, I could not detect any other pertinent positives or negatives. PHYSICAL EXAMINATION: VITAL SIGNS: Temperature is 97.6, blood pressure 94/64, pulse of 46. GENERAL: She is alert, does not appear in any distress. HEENT: Anicteric sclerae. Oropharynx is moist. NECK: Supple. CV: Normal S1 and S2. Regular rate and rhythm. CHEST: Shows a breath sounds. ABDOMEN: Soft, nondistended. No tympany. She does have active bowel sounds. There is focal tenderness in the medial lateral upper quadrant and epigastrium. No guarding or rebound. EXTREMITIES: No edema. LABORATORY DATA: WBCs 4.7, hemoglobin 11.2, platelet count of 127. Sodium 138, potassium 3.7, chloride 109, CO2 of 18, creatinine 0.59, BUN of 6, lipase of 48 . Organizing 6 x 7 cm pseudocyst formation. Viable pancreas. No significant peripancreatic inflammation. ASSESSMENT: 1. The patient could have had mild pancreatitis, but her current CT is much improved compared to her previous CT from 2 months ago. There is no significant sign of active inflammation/pancreatitis on current study. Her physical exam is generally benign. 2. Organizing pseudocyst formation. No evidence of infection. 3. Hypertriglyceridemia. RECOMMENDATIONS: 1. Agree with advancing diet. 2. No further evaluation is warranted at this point. 3. The patient will need to be adherent to her term medication to control her triglyceridemia as outpatient. 4. Otherwise, no other recommendation, we will follow. Job ID: [id number]
[2019-08-08] MEDS: Fish Oil 1,000 MG CAP PO SCH (20:09)
[2019-08-08] MEDS ORDERED: Aspirin 325 MG TAB PO PRN (20:30)
[2019-08-09] MEDS: Fenofibrate Nanocrystallized 145 MG TAB PO SCH (08:03)
[2019-08-09] MEDS: Fish Oil 1,000 MG CAP PO SCH (08:03)
[2019-08-09] MEDS: Heparin 5,000 UNITS/ML VIAL SC SCH ×2 (08:04→17:17)
[2019-08-09] MEDS ORDERED: Aspirin 81 mg Enteric Coated Tablet PO SCH ×2 (09:00→21:00)
[2019-08-09] MEDS ORDERED: Enoxaparin Sodium 40 MG/0.4 ML SYRINGE SC SCH (09:00)
[2019-08-09] MEDS: Dextrose 5 % And 0.9 % NaCl 1,000 ML IV SCH (09:56)
[2019-08-09 12:10] VITALS: BP 109/71; TEMP 98.1
--- NOTE | 2019-08-09 16:19 | PRG ---
DATE OF SERVICE: 08/09/2019 SUBJECTIVE: The patient is sitting up in bed without any distress. She still has upper abdominal pain, but much less than before. There is no nausea or vomiting. PHYSICAL EXAMINATION: VITAL SIGNS: Temperature is 98.1, blood pressure is 109/71, pulse of 48. HEENT: Shows anicteric sclerae. Oropharynx is clear. NECK: Supple. CV: Shows normal S1, S2. Regular rate and rhythm. CHEST: Shows breath sounds. ABDOMEN: Soft. Focal tenderness in the medial left upper quadrant. No guarding or rebound. She has active bowel sounds. EXTREMITIES: Show no edema. LABORATORY DATA: Triglycerides today is 843. ASSESSMENT: 1. History of acute pancreatitis with organizing cirrhosis. Current CT showed viable pancreas with minimal inflammation. Her lipase this admission was normal at 48. 2. Uncomplicated pseudocyst formation from past acute pancreatitis. 3. Hypertriglyceridemia. RECOMMENDATIONS: 1. Agree that the patient can be discharged home. 2. Need adherence to her fenofibrate and Niaspan to control her hypertriglyceridemia. 3. No other GI intervention is indicated. Job ID: [id number]
--- NOTE | 2019-08-09 18:40 | PRG ---
DATE OF SERVICE: 08/09/2019 SERVICE: Pulmonary Medicine. INTERVAL HISTORY: The patient is doing fine from respiratory standpoint. Yesterday, she got a dose of niacin which immediately causes severe flushing reaction. We subsequently gave her some aspirin. She seemed to tolerate her evening dose of niacin just fine. She cannot provide any additional elements of the history. Otherwise, she has no specific complaints. She indicates her abdominal discomfort has improved somewhat. PHYSICAL EXAMINATION: VITAL SIGNS: Afebrile, pulse 48, blood pressure 109/71, respirations 16, and saturation 100% on room air. GENERAL: The patient is awake and alert, in no apparent distress. LUNGS: Decent air entry. There is no prolonged expiratory phase or wheezing present. HEART: Normal rate and regular. ABDOMEN: Soft, nontender, and nondistended. Bowel sounds are positive. MUSCULOSKELETAL: No cyanosis or clubbing. There is no pitting in the bilateral lower extremities. NEUROLOGIC: Grossly nonfocal. LABORATORY DATA: Triglycerides have improved to 843. ASSESSMENT: 1. Hypertriglyceridemia. 2. History of severe pancreatitis secondary to hypertriglyceridemia. 3. Uncomplicated pseudocyst as a sequela of her previous severe pancreatitis. 4. Abdominal pain, improving. DISCUSSION AND PLAN: The patient will require outpatient niacin and gemfibrozil. Fish oil certainly will not hurt her and can drop the triglyceride level further. In order to prevent additional flushing reaction, a daily dose of aspirin is warranted. At this point, she has no further requirements for inpatient Pulmonary/Critical Care, and I will sign off. Please call with additional questions or concerns through time. Job ID: [id number]
== END 2019-08-09 17:31 | disposition home or self-care (01) | DRG 439 ==
LOC: ERS 16:01 → IMCU/EMU 20:32 → T4-B 08-08 15:24
PROVIDERS: ADMIT Internal Medicine; ATTEND Internal Medicine
DX: K86.3 Pseudocyst of pancreas (principal); E87.1 Hypo-osmolality and hyponatremia; E87.2 Acidosis; E78.1 Pure hyperglyceridemia; E78.00 Pure hypercholesterolemia, unspecified; K74.60 Unspecified cirrhosis of liver; Z90.49 Acquired absence of other specified parts of digestive tract
CPT/HCPCS: 36415; 36416; 74177; 80048; 80053; 81003; 81025; 82150; 82465; 83605; 83690; 84478; 84484; 85025; 96361; 96365; 96375; J0131; J1170; J1200; J1644; J1815; J2270; J2405; J3490; Q9966

== ENCOUNTER 2019-12-21 17:58 | Emergency (ER) | payer SELFPAY ==
[~2019-12-21 17:58] MED LIST changes: -ISOVUE-370 76%-LOCM 1 ML ONE; +Iopamidol-370 76% 500 ML 1 ML ONE
[2019-12-21 18:38] LABS: #Eosinphils 0.1 thou/uL (0.0-0.7); #Monocytes 0.3 thou/uL (0.11-0.59); #Neutrophils 3.6 thou/uL (1.40-6.50); %Basophils 0.7 % (0.0-1.0); %Eosinophils 2.4 % (0.0-10.0); %Lymphocytes 32.7 % (21.0-51.0); %Monocytes 5.5 % (0.0-10.0); %Neutrophils 58.8 % (42.0-75.0); Hemoglobin 11.3 g/dL (12.0-16.0); Mean Corpuscular Hemoglobin 30.2 pg (27.0-31.0); Mean Corpuscular Volume 86.4 fL (78.0-98.0); Mean Platelet Volume 7.3 fL (7.4-10.4); Platelet Count 224 thou/uL (130-400); RBC Distribution Width 12.7 % (11.5-14.5); Red Blood Cell (RBC) Count 3.76 mill/uL (4.20-5.40); White Blood Cell (WBC) Count 6.2 thou/uL (4.8-10.8)
[2019-12-21 18:42] LABS: Albumin 4.6 g/dL (3.5-5.0); Alkaline Phosphatase 61 U/L (40-110); Anion Gap 16 mmol/L (10-20); BUN (Urea Nitrogen) 7 mg/dL (7.0-18.7); Bilirubin, Total 0.7 mg/dL (0.2-1.2); Calc. Creatinine Clearance 0 mL/min (70-130); Calcium 9.5 mg/dL (7.8-10.44); Carbon Dioxide 21 mmol/L (22-29); Chloride 99 mmol/L (98-107); Estimated GFR-MDRD 89; Globulin 5.8 g/dL (2.4-3.5); Glucose 89 mg/dL (70-105); Lipase 55 U/L (8-78); Protein, Total 10.4 g/dL (6.0-8.3); Sodium 132 mmol/L (136-145)
[2019-12-21 18:54] LABS: ALT (SGPT) Less than 35 U/L (8-55)
[2019-12-21 20:01] LABS: AST (SGOT) 28 U/L (5-34)
[2019-12-21 21:01] LABS: Bilirubin Negative (Negative); Blood, Urine 2+ (Negative); Clarity Turbid (Clear); Glucose, Urine (Dipstick) Normal (Negative); Leukocyte 25 Leu/uL (Negative); Mucous/LPF Rare LPF (<2+); Nitrite Negative (Negative); Protein, Urine (Dipstick) Negative (Neg-Trace); RBC/HPF 0-3 HPF (0-3); Squamous Epithelial 0-3 HPF (0-3); Urobilinogen Normal mg/dL (Less than 2)
[2019-12-21 21:03] LABS: Pregnancy Test - Urine (BHCG) Negative (Negative); Pregu Control Background? CLEAR/WHITE (CLR/WHITE); Pregu Control Bar Appear? YES (CONTROL BAR); Specific Gravity 1.015 (1.002-1.036)
[2019-12-21 21:04] LABS: Bacteria/HPF 1+ HPF (None Seen)
--- NOTE | 2019-12-21 21:20 | CT ---
CT abdomen and pelvis with IV contrast HISTORY: Upper abdomen pain. Prior pancreatitis. Recent uterus surgery. COMPARISON: 08/07/2019. FINDINGS: The lung bases are clear. The lobular fluid collection the 2018 the greater curvature of th e stomach and the spleen is again demonstrated. It now measures up to 4.1 cm x 1.8 cm greatest diameters on the coronal images were it was previously 6.0 cm x 2.8 cm. No new abnormalities. Pancrea s does not appear inflamed. Minimal fluid in the dependent portion of the pelvis. Postoperative changes of the anterior pelvic wa ll. No evidence of bowel obstruction or urinary tract obstruction. IMPRESSION: Interval decrease in size of pancreatic pseudocyst along the gastrosplenic ligament. No n ew abnormalities. Postoperative changes of the pelvis without evidence of complication.
[2019-12-21] MEDS ORDERED: Morphine 4 MG/ML VIAL ONE (21:36)
[2019-12-21] MEDS ORDERED: Ondansetron PF 4 MG/2 ML Vial ONE (21:36)
--- NOTE | 2019-12-21 22:06 | ULT ---
Pelvic sonogram transvaginal imaging with duplex evaluation HISTORY: Pelvic pain. Recent surgery. FINDINGS: Urinary bladder is incompletely distended. Uterus has a heterogeneous echotexture and measu res up to 9.0 cm. Endometrium is 0.8 cm. Small amount of free fluid present within the cul-de-sac. Dominant follicle of the right ovary measures up to 2.8 cm. Left ovary shows no focal abnormalities. Good color and spectral Doppler flow documented within the right ovary. IMPRESSION: No acute abnormalities are demonstrated.
== END 2019-12-21 22:56 | disposition home or self-care (01) ==
LOC: ERS 17:58
DX: R10.13 Epigastric pain (principal); E78.2 Mixed hyperlipidemia; Z79.899 Other long term (current) drug therapy
CPT/HCPCS: 36415; 74177; 76856; 80053; 81003; 81015; 81025; 83605; 83690; 85025; 96360; 96374; 96375; J2270; J2405; Q9967

== ENCOUNTER 2020-05-19 14:03 | Emergency (ER) | payer OTHER, SELFPAY ==
[2020-05-20 14:38] LABS: SARS-CoV-2 MS2 Positive; SARS-CoV-2 N Gene Positive; SARS-CoV-2 S Gene Positive; SARS-CoV-2 orf1ab Positive
== END 2020-05-19 14:52 | disposition home or self-care (01) ==
LOC: ERS 14:03
DX: U07.1 COVID-19 (principal); E78.2 Mixed hyperlipidemia
CPT/HCPCS: 87635; 99283; U0003